=== PATIENT | female | born 1950 | race Caucasian/White ===

== ENCOUNTER 2018-05-18 09:34 | Day surgery (SDC) | payer MEDICARE ==
[2018-05-17 09:04] VITALS: BMI 34.9
[~2018-05-18 09:34] MED LIST: LACTATED RINGERS 1,000 ML IV SCH
[2018-05-18 11:01] VITALS: RESP 16; TEMP 97.2
[2018-05-18] MEDS ORDERED: LIDOCAINE 1% 20 ML VIAL (10MG/ML) FOR IV START INTRADERMA ONE (11:18)
[2018-05-18] MEDS ORDERED: PROPOFOL 10 MG/ML 20 ML VIAL IV ONE (11:29)
[2018-05-18] MEDS ORDERED: LIDOCAINE 1% INJ 10MG/ML (20 ML MDV) ONE (11:29)
--- NOTE | 2018-05-18 11:51 | P.PCN ---
Date of Procedure: 05/18/18 Procedure(s) Performed: Brief history: Patient is a pleasant 67-year-old white female, scheduled for an elective upper endoscopy as well as colonoscopy as a part of evaluation of long-standing history of GERD/screening for colorectal neoplasia Procedure performed: Esophagogastroduodenoscopy with biopsy Colonoscopy Preoperative diagnosis: GERD Screening for colon cancer Anesthesia: MAC Procedure: After informed consent was obtained from the patient was brought into the endoscopy unit and IV sedation was administered by anesthesia under continuous monitoring. Initially upper endoscopy was done. The Olympus GF 160 video endoscope was inserted inserted into the mouth and esophagus intubated without any difficulty and was gradually advanced into the stomach and duodenum and carefully examined. The bulb and second part of the duodenum appeared normal. The scope was then withdrawn into the stomach adequately insufflated with air and upon careful examination the antrum had mild gastritis and biopsies were done from this area. The body, cardia and fundus appeared normal. The scope was then withdrawn into the esophagus. The GE junction was located at 40 cm to the incisors. It appeared regular with no erythema erosions or ulcerations. Rest of the esophagus appeared normal. Patient tolerated the procedure well. At this time the patient continued to remain sedation. Initial digital rectal examination was normal. Olympus CF 160 video colonoscope was then inserted into the rectum and gradually advanced to the cecum without any difficulty. Careful examination was performed as the scope was gradually being withdrawn. The prep was excellent. The cecum, ascending colon, transverse colon, descending colon, sigmoid colon and rectum appeared normal. Retroflexion was performed in the rectum and no lesions were noted. Patient tolerated the procedure well. Impression: 1. Upper endoscopy revealed mild antral gastritis but no evidence of esophagitis or peptic ulcer disease. No evidence of Mosquera's esophagus 2. Colonoscopy was essentially within normal limits with no evidence of colorectal neoplasia Recommendations: Findings of this examination were discussed with the patient as well as her family. She will follow with the biopsy results. She was advised to have a repeat screening colonoscopy in 10 years.
[2018-05-18 12:18] VITALS: BP 137/87
[2018-05-18 12:37] VITALS: PULSE 87
== END 2018-05-18 12:49 | disposition home or self-care (01) ==
LOC: ORWHC2ENDO 09:34
PROVIDERS: ATTEND Internal Medicine Gastroenterology
DX: Z12.11 Encounter for screening for malignant neoplasm of colon (principal); K29.50 Unspecified chronic gastritis without bleeding; K21.9 Gastro-esophageal reflux disease without esophagitis; I10 Essential (primary) hypertension; E78.5 Hyperlipidemia, unspecified; J44.9 Chronic obstructive pulmonary disease, unspecified; Z86.73 Personal history of transient ischemic attack (TIA), and cerebral infarction without residual deficits; G35 Multiple sclerosis; Z79.02 Long term (current) use of antithrombotics/antiplatelets; Z79.899 Other long term (current) drug therapy; Z79.51 Long term (current) use of inhaled steroids
CPT/HCPCS: 88305; 43239; J2001; J2704; G0121

== ENCOUNTER 2023-04-06 06:49 | Inpatient (IN) | payer MEDICARE ==
--- NOTE | 2023-04-05 08:39 | P.HPOR ---
History of Present Illness H&P Date: 04/05/23 Chief Complaint: Left knee pain The patient is a 72-year-old female who presents with progressive left knee pain for the past several years worsening recently. She's having pain with any weightbearing activities. She does stiffness in addition to difficulty with stairs. She's tried injections along with medications. She also uses a walker. Review of Systems As per HPI Past Medical History Past Medical History: Cancer, CVA/TIA, GERD/Reflux, Hypertension, Neurologic Disorder, Osteoarthritis (OA) Additional Past Medical History / Comment(s): HX TIA (2005)-no residual effects, MULTIPLE SCLEROSIS WITH LEFT LEG WEAKNESS, NUMBNESS AND TINGLING IN HANDS & STIFFNESS (RIGHT HAND WORSE), TIRES EASILY. , HX FALLS., OCCASIONAL SOB., HERNIATED DISC, SCIATICA., TINNITIS., HX OF BREAST CANCER WITH SURGERY AND CHEMO (1997/1998)., KIDNEY STONES, overactive bladder, CYST LEFT KIDNEY, FREQUENT UTI'S-nothing recent. lower leg edema, left leg worse than right History of Any Multi-Drug Resistant Organisms: None Reported Past Surgical History: Back Surgery, Breast Surgery, Cholecystectomy, Hysterectomy, Orthopedic Surgery Additional Past Surgical History / Comment(s): BX LEFT BREAST, RIGHT MASTECTOMY WITH RECONSTRUCTION, ARTHROSCOPY KNEE., TRIGGER FINGER, BENIGN CYST THROAT REMOVED., BACK PAIN PROCEDURES., THYROID BX, TRANS INCISIONLESS FUNDIPLICATION (2010)-PATIENT STATES BAND AROUND ESOPHAGUS. back surg. 2021 Past Anesthesia/Blood Transfusion Reactions: Postoperative Nausea & Vomiting (PONV) Additional Past Anesthesia/Blood Transfusion Reaction / Comment(s): PONV w/gallbladder surg., no hx. of transfusion reaction Smoking Status: Never smoker - Past Family History Father Family Medical History: Cancer Additional Family Medical History / Comment(s): PANCREATIC CANCER Medications and Allergies Home Medications Medication Instructions Recorded Confirmed Type Cholecalciferol [Vitamin D3 (25 2,000 unit PO DAILY 05/17/18 03/30/23 History Mcg = 1000 Iu)] Fenofibrate 160 mg PO DAILY 05/17/18 03/30/23 History Fingolimod HCl [Gilenya] 0.5 mg PO DAILY 05/17/18 03/30/23 History Gabapentin [Neurontin] 300 mg PO BID 05/17/18 03/30/23 History Losartan [Cozaar] 50 mg PO DAILY 05/17/18 03/30/23 History Mirabegron [Myrbetriq] 25 mg PO DAILY 05/17/18 03/30/23 History Vit C/E/Zn/Coppr/Lutein/Zeaxan 1 each PO BID 05/17/18 03/31/23 History [Preservision Areds 2 Softgel] amLODIPine [Norvasc] 5 mg PO DAILY 05/17/18 03/30/23 History hydroCHLOROthiazide [Hydrodiuril] 12.5 mg PO DAILY 05/17/18 03/30/23 History Albuterol Inhaler [Ventolin Hfa 1 - 2 puff INHALATION Q6H PRN 03/30/23 03/30/23 History Inhaler] Ibandronate Sodium [Boniva] 150 mg PO Q30D 03/30/23 03/30/23 History Meclizine [Antivert] 12.5 mg PO DIRECTED PRN 03/30/23 03/30/23 History Meloxicam [Mobic] 15 mg PO DAILY 03/30/23 03/31/23 History Pantoprazole Sodium [Protonix] 20 mg PO DAILY 03/30/23 03/30/23 History Aspirin 81 mg PO DAILY 03/31/23 03/31/23 History Cranberry Fruit Extract [Cranberry] 500 mg PO BID 03/31/23 03/31/23 History Multivitamins, Thera [Multivitamin 1 tab PO DAILY 03/31/23 03/31/23 History (formulary)] Allergies Allergy/AdvReac Type Severity Reaction Status Date / Time oxybutynin Allergy Unknown Verified 03/31/23 08:43 solifenacin [From Vesicare] Allergy Unknown Verified 03/31/23 08:43 sulfamethoxazole Allergy Unknown Verified 03/31/23 08:43 [From Bactrim] trimethoprim [From Bactrim] Allergy Unknown Verified 03/31/23 08:43 Physical Examination - Knee left Appearance: effusion Effusion grade: grade 1 Valgus alignment in stance: 5 degrees Tenderness with palpation: anterior, lateral Pain: throughout ROM Gait: uses walker ROM: extension: -10 degrees ROM: flexion: 100 degrees Crepitus with motion: Yes Strength: extension: 5/5 Strength: flexion: 5/5 Meniscal tests: lateral meniscal tests: positive, lateral joint line pain: positive Results The patient is a well-developed well-nourished female proximally 5 foot 6, 200 pounds of endomorphic habitus. HEENT exam is nonfocal, neck supple. She has painless passive motion of her left hip. Straight leg raise is negative. She's tender but the lateral joint line of the left knee. Her distal neurovascular appears intact in the left lower extremity. - Diagnostic results Knee x-ray: image reviewed (3 views of the left knee obtaining office show severe lateral compartment osteoarthrosis with [id number] changes and subchondral sclerosis.) Assessment and Plan Assessment: Left knee severe lateral compartment osteoarthrosis History of multiple sclerosis Plan: I talked with the patient regarding her condition along with treatment options. At this point she is quite symptomatic and limited because of pain related to her left knee osteoarthritis despite conservative measures. After thorough discussion she opted to proceed with surgery. We'll plan to proceed with left total knee arthroplasty. Risks and benefits were discussed at length in layman's terms. We will institute DVT prophylaxis postoperatively.
[~2023-04-06 06:49] MED LIST changes: +ACETAMINOPHEN TAB 500 MG TAB PO PRN; -LACTATED RINGERS 1,000 ML IV SCH; +MELOXICAM 7.5 MG TAB PO PRN; +TRANEXAMIC 1,000 MG/100ML-NACL 1,000 MG in SALINE 1 100ML.BAG IVPB PRN; +VANCOMYCIN 1,500 MG in SODIUM CHLORIDE 0.9% 500 ML 500 ML IVPB PRN
[2023-04-06] MEDS ORDERED: HYDROmorphone 0.5 MG/0.5 ML SYRINGE IVP PRN ×3 (07:12→10:37)
[2023-04-06] MEDS ORDERED: DEXAMETHASONE SOD PHOSPHATE 4 MG/ML 1 ML VIAL IV ONE (07:12)
[2023-04-06] MEDS ORDERED: ONDANSETRON 4 MG/2 ML VIAL IVP ONE (07:12)
[2023-04-06] MEDS ORDERED: MIDAZOLAM 2 MG/2 ML VIAL IV PRN (07:12)
[2023-04-06] MEDS ORDERED: LIDOCAINE 1% (10MG/ML) FOR IV START INTRADERMA PRN (07:12)
[2023-04-06] MEDS: LACTATED RINGERS 1,000 ML IV SCH (07:53)
[2023-04-06] MEDS ORDERED: MIDAZOLAM 2 MG/2 ML VIAL IVP ONE (08:29)
[2023-04-06] MEDS ORDERED: LIDOCAINE 2% INJ 20 MG/ML (2 ML VIAL) ONE (08:51)
[2023-04-06] MEDS ORDERED: fentaNYL (PF) 50 MCG/ML 2 ML AMP ONE (08:51)
[2023-04-06] MEDS ORDERED: DEXAMETHASONE SOD PHOSPHATE 4 MG/ML 1 ML VIAL ONE (08:51)
[2023-04-06] MEDS ORDERED: TRANEXAMIC 1,000 MG/100ML-NACL PREMIX BAG ONE (08:51)
[2023-04-06] MEDS ORDERED: ROPIVACAINE 5 MG/ML 30 ML VIAL ONE (08:51)
[2023-04-06] MEDS ORDERED: SUCCINYLCHOLINE CHLORIDE 200 MG/10 ML VIAL IV ONE (08:51)
[2023-04-06] MEDS ORDERED: PROPOFOL 10 MG/ML 20 ML VIAL IV ONE (08:51)
[2023-04-06] MEDS ORDERED: ePHEDrine 50 MG/ML 1 ML VIAL ONE (08:51)
[2023-04-06] MEDS ORDERED: ceFAZolin 1,000 MG in SODIUM CHLORIDE 0.9% 1,000 ML IRRIGATION ONE (09:26)
[2023-04-06] MEDS ORDERED: NALOXONE 0.4 MG/ML 1 ML VIAL IV PRN (10:37)
[2023-04-06] MEDS ORDERED: MAGNESIUM HYDROXIDE 2,400 MG/30 ML CUP PO PRN (10:37)
--- NOTE | 2023-04-06 10:51 | P.OP ---
Date of Procedure: 04/06/23 Preoperative Diagnosis: Left knee severe tricompartmental osteoarthrosis Postoperative Diagnosis: Same Procedure(s) Performed: Left total knee arthroplastycementedposterior stabilized Implants: Depuy Attune size 5 cemented femoral component, size 4 cemented tibial component, 12 mm articular surface, 35 mm cemented patellar component. This is a posterior stabilized implant. Anesthesia: [facility] Surgeon: K[employer] Machine Operator #1: Ezequiel Valencia Estimated Blood Loss (ml): 50 Pathology: other (Bone fragments) Condition: stable Disposition: PACU Indications for Procedure: The patient's a 72-year-old female who presents with regressive left knee pain secondary to osteoarthrosis despite conservative measures. A discussion of the risks and benefits of operative intervention versus continued conservative measures was made with patient. She opted to proceed with surgery. Operative risks to include infection, neurovascular injury, development of blood clots, fracture, possible component loosening/failure and need for subsequent procedures was discussed. Informed consent was obtained. Operative Findings: As below Description of Procedure: The patient was brought to the operating room, and after induction of spinal anesthesia the left lower extremity was prepped and draped in a normal fashion. The tourniquet was inflated to 270 mm marker. A longitudinal incision extending 3 finger breaths above the superior pole of patella extending to the medial aspect the tibial tubercle was then made. The skin and subcutaneous tissues were divided sharply. Electrocautery was used for hemostasis. A medial parapatellar arthrotomy was performed. The medial soft tissues to include the superficial and deep portions of the medial collateral ligament were elevated subperiosteally. The patella was everted. A portion of the retropatellar fat pad was excised sharply. The anterior cruciate ligament was sacrificed. Blunt retractors were placed. A starting hole was made in the distal femur 1 cm anterior to the posterior cruciate ligament origin. An intramedullary femoral guide was then inserted planning on 5 valgus distal cut with 9 mm distal resec tion. The cutting block was pinned in place. The distal cut was then made. The posterior referencing sizing guide was utilized. I felt size 5 was most appropriate. 3 of external rotation was built into the system and verified off the trans-epicondylar axis and the posterior condyles. The cutting block was pinned in place. The anterior, posterior, and chamfer cuts then made. Bone fragments were removed. The intercondylar guide was placed and the notch cut was made with a sagittal saw. The bone block was removed in one fragment. The trial component was then placed. There is good anterior to posterior and medial to lateral fit. The distal peg holes were drilled. The trial component was removed. Attention was then paid towards preparing the proximal tibia. An extra medullary guide was utilized in line with the tibial shaft and second metatarsal distally. I planned on 8 mm resection from the medial compartment. The cutting block was pinned in place. The proximal tibial cut was then made. The bone was removed in one fragment. The remnants of the medial and lateral menisci were excised at the capsular junction with electrocautery. The tibia sized most appropriately at size 4. The trial femoral and tibial components were placed along with a 12 mm articular surface. I was able to obtain full flexion and extension with internal and external rotation. After several flexion and extension cycles, the tibial rotation was marked with electrocautery line with the medial one third of the tibial tubercle. Attention was then paid towards preparing the patella. A patella reamer was utilized taking stem to 14 mm of bone stock. A good flush cut was made. The patella sized most appropriately 35 mm. The peg holes were drilled. The trial components placed. I had good patellofemoral tracking with no hands technique. The trial components were then removed. The tibia was prepared in the appropriate rotation with appropriate drill and keel punch. The posterior osteophytes were removed with a curved osteotome. The flexion and extension gaps were checked and felt to be symmetric at 12 mm. A trial components were then removed. The bony surfaces were prepared with pulsatile lavage and dried. The tibial component was then cemented place was fully seated. Excess cement was removed. The femoral component cemented place and was fully seated. Excess cement was removed. The trial 12 mm articular surface was placed and the knee was put in full extension. The patella component was cemented place. After the cement had sufficiently hardened, the knee was again taken through a range of motion. Again I was able to obtain full flexion and extension with varus and valgus stress. The trial 12 mm articular surface was removed and the final one inserted. This was fully seated. Care was taken to avoid any soft tissue interposition. Pulsatile lavage was again utilized. The medial parapatellar arthrotomy was closed with #2 Ethibond suture. The tourniquet was deflated with approximately 60 minutes total tourniquet time. Final hemostasis was obtained with the cautery. There was minimal bleeding therefore a deep drain was not placed. The subcutaneous tissues were reapproximated with interrupted 2-0 Vicryl sutures. The skin was reapproximated with 3-0 subcuticular strata fix suture. Skin tape and adhesive was applied. A sterile dressing was applied. The patient was awoken from sedation and transferred to recovery room in good condition. Blood loss was estimated at 50 mL. No complications were incurred. Sponge and needle counts were correct at the end of the case. Ezequiel FOY assisted during the major components of this case to include exposure, bone resection, implantation, and closure.
[2023-04-06] MEDS: HYDROmorphone 0.5 MG/0.5 ML SYRINGE IVP ONE ×2 (11:03→12:03)
[2023-04-06] MEDS ORDERED: HYDROmorphone 0.5 MG/0.5 ML SYRINGE IVP ONE ×2 (11:11→11:28)
--- NOTE | 2023-04-06 11:12 | XR ---
EXAMINATION TYPE: XR knee limited LT DATE OF EXAM: 04/06/2023 COMPARISON: NONE TECHNIQUE: Two views submitted HISTORY: Post op FINDINGS: There is a prosthetic knee in near anatomic alignment. There is soft tissue edema and soft tissue e mphysema. IMPRESSION: 1. Postoperative change. Appears in near-anatomic alignment
[2023-04-06] MEDS ORDERED: ROPIVACAINE 1,100 MG, SODIUM CHLORIDE 0.9% 500 ML 330 ML, EMPTY PAIN BALL 1 EACH MISCELLANE PRN ×2 (11:18)
--- NOTE | 2023-04-06 15:23 | P.ANPRN ---
Procedure Note - Anesthesia - Nerve Block Performed Left Adductor Canal Infusion Time Out Performed: Yes Date of Procedure: 04/06/23 Procedure Start Time: : Procedure Stop Time: :37 Location of Patient: PreOp Indication: Acute Post-Operative Pain, Requested by Surgeon Sedation Type: Sedate with meaningful contact maintained Preparation: Sterile Prep, Sterile Dressing Position: Supine Catheter: Indwelling Needle Types: Pajunk Needle Gauge: 21 Ultrasound used to visualize needle placement: Yes Ultrasound used to observe medication spread: Yes Blood Aspirated: No Pain Paresthesia on Injection Noted: No Resistance on Injection: Normal Image Stored and Saved: Yes Events: Uneventful and Well Tolerated (ropi .5% 20cc plus dexamethasone 4mg)
--- NOTE | 2023-04-06 15:25 | P.ANPRN ---
Procedure Note - Anesthesia - Nerve Block Performed Left iPack Single Time Out Performed: Yes Date of Procedure: 04/06/23 Procedure Start Time: :38 Procedure Stop Time: :41 Location of Patient: PreOp Indication: Acute Post-Operative Pain, Requested by Surgeon Sedation Type: Sedate with meaningful contact maintained Preparation: Sterile Prep Position: Supine Needle Types: Pajunk Needle Gauge: 21 Ultrasound used to visualize needle placement: Yes Ultrasound used to observe medication spread: Yes Blood Aspirated: No Pain Paresthesia on Injection Noted: No Resistance on Injection: Normal Image Stored and Saved: Yes Events: Uneventful and Well Tolerated (ropi .5% 25cc plus dexmethasone 4mg)
[2023-04-06] MEDS ORDERED: VANCOMYCIN 1,500 MG in SODIUM CHLORIDE 0.9% 500 ML 500 ML IVPB ONE (21:00)
[2023-04-06] MEDS: SENNOSIDES-DOCUSATE SODIUM 1 EACH TAB PO SCH (21:11)
[2023-04-06] MEDS: GABAPENTIN 300 MG CAP PO SCH (21:11)
[2023-04-06] MEDS: HYDROcodone/APAP 7.5-325MG 1 EACH TAB PO PRN (21:12)
--- NOTE | 2023-04-07 07:04 | P.PN ---
Progress Note - Text Progress Note Date: 04/07/23 Postoperative day # 1 status post total knee arthroplasty, and adductor canal catheter placed for postoperative analgesia, currently at ropivacaine 0.2% 8 mL per hour and continuous infusion, visual analogue scale is 4/10, patient using oral pain medication for breakthrough pain. Assessment and plan= Acute postoperative pain, adductor canal catheter for pain control, pain is well controlled we'll continue the same management.
[2023-04-07] MEDS: LACTATED RINGERS 1,000 ML IV SCH (07:16)
[2023-04-07] MEDS: RIVAROXABAN 10 MG TAB PO SCH (08:49)
[2023-04-07] MEDS: HYDROcodone/APAP 7.5-325MG 1 EACH TAB PO PRN (08:49)
[2023-04-07] MEDS: GABAPENTIN 300 MG CAP PO SCH ×2 (08:49→20:59)
--- NOTE | 2023-04-07 11:44 | P.PN ---
Subjective Progress Note Date: 04/07/23 Principal diagnosis: Left knee osteoarthritis Patient was seen at bedside this morning lying semirecumbent position dressing present over left knee. Patient says she has been getting up every couple hours to use the bathroom. Patient says she has urinated since surgery several times. Patient says she has not had following, however, patient says she has been passing gas. Patient says she does live at home with several subsequent to get to the house with her 81-year-old boyfriend. Patient is hoping to go to swing bed upon discharge from hospital. Patient states most the pain is located the front of the knee and states she also has spasms in the thigh currently. Zenia nt says she is looking forward to working with physical therapy later today. She denies chest pain, fever, shortness breath, nausea, vomiting, change in vision, loss of bowel/bladder control. Objective - Vital Signs Vital signs: Vital Signs Temp 97.9 F 04/07/23 08:00 Pulse 70 04/07/23 08:00 Resp 17 04/07/23 08:00 BP 154/77 04/07/23 08:00 Pulse Ox 96 04/07/23 08:00 FiO2 Intake & Output 04/06/23 04/07/23 04/07/23 18:59 06:59 18:59 Intake Total 1701 Output Total 50 Balance 1651 Weight 92.4 kg Intake: IV 1201 Intake, IV Titration 500 Amount Vancomycin 1,500 mg In 500 Sodium Chloride 0.9% 500 ml 500 ml @ 166.667 mls/ hr IVPB ONCE ONE Rx#: [id number] Output: Estimated Blood Loss 50 Other: # Voids 1 - Exam Left knee: Incision is clean, dry, and intact. The exofin fusion tape is in good condition. There is minimal soft tissue swelling and ecchymosis surrounding the medial and lateral aspects of the incision. Calf is soft, no tenderness with palpation. Plantar flexion, dorsiflexion, EHL, FHL are intact. Sensory exam to light touch throughout the extremity is intact, dorsal pedis pulses 2+. Assessment and Plan Assessment: 1. Left knee osteoarthritis - Postoperative day #1 status post left total knee arthroplasty Plan: 1. Left knee osteoarthritis - left total knee arthroplasty performed yesterday, 04/06/2023. Patient stable at bedside this morning. Pending PT/OT evaluation. Patient would like to go to bed upon discharge. Plan for discharge to rehab within the next few days. We'll continue to follow patient during her stay in hospital. 2. Appreciate medical management 3. Pain management - [place] 4. GI prophylaxis - senna 5. DVT prophylaxis - Xarelto 6. PT/OT - weightbearing as tolerated walker 7. Encourage incentive spirometer use 8. Discharge planning - Plan for discharge to rehab within the next few days Time with Patient: Less than 30
[2023-04-07 12:47] LABS: Basophils # (A) 0.01 X 10*3/uL (0.00-0.10); Basophils % (A) 0.1 %; Eosinophils # (A) 0 X 10*3/uL (0.04-0.35); Eosinophils % (A) 0 %; HCT 35.7 % (37.2-46.3); HGB 11.6 d/dL (12.0-15.0); Lymphocytes # (A) 0.58 X 10*3/uL (0.90-5.00); Lymphocytes % (A) 6.9 %; MCH 30.5 pg (27.0-32.0); MCHC 32.5 d/dL (32.0-37.0); MCV 93.9 FL (80.0-97.0); Mean Platelet Volume 10.5 FL (9.5-12.2); Monocytes # (A) 1.22 X 10*3/uL (0.20-1.00); Monocytes % (A) 14.5 %; NRBC Per 100 WBC 0 X 10*3/uL (0.00-0.01); Neutrophils # (A) 6.54 X 10*3/uL (1.80-7.70); Neutrophils % (A) 77.9 %; Platelet Count 279 X 10*3/uL (140-440); RDW 13.2 % (11.5-14.5)
[2023-04-07] MEDS ORDERED: ALBUTEROL NEBULIZED 2.5 MG/3 ML INHALATION PRN (12:48)
--- NOTE | 2023-04-07 12:53 | P.CONS ---
History of Present Illness - Reason for Consult Consult date: 04/07/23 Medical management - History of Present Illness History of present illness; patient is a 72-year-old lady with past medical history significant for hypertension, hyperlipidemia, GERD who presented to the hospital for elective left total knee arthroplasty. Patient has been following up outpatient with orthopedics for couple of years and her left knee pain has been worsening. Orthopedic discussed with her regarding her treatment options, since she is symptomatic day decided to proceed with surgery. Patient had surgery done on 04/06. Postoperatively the medicine team were consulted for medical management REVIEW OF SYSTEMS: CONSTITUTIONAL: No fever, no malaise, no fatigue. HEENT: No recent visual problems or hearing problems. Denied any sore throat. CARDIOVASCULAR: No chest pain, orthopnea, PND, no palpitations, no syncope. PULMONARY: No shortness of breath, no cough, no hemoptysis. GASTROINTESTINAL: No diarrhea, no nausea, no vomiting, no abdominal pain. NEUROLOGICAL: No headaches, no weakness, no numbness. HEMATOLOGICAL: Denies any bleeding or petechiae. GENITOURINARY: Denies any burning micturition, frequency, or urgency. MUSCULOSKELETAL/RHEUMATOLOGICAL: Denies any joint pain, swelling, or any muscle pain. ENDOCRINE: Denies any polyuria or polydipsia. The rest of the 14-point review of systems is negative. PHYSICAL EXAMINATION: GENERAL: The patient is alert and oriented x3, not in any acute distress. Well developed, well nourished. HEENT: Pupils are round and equally reacting to light. EOMI. No scleral icterus. No conjunctival pallor. Normocephalic, atraumatic. No pharyngeal erythema. No thyromegaly. CARDIOVASCULAR: S1 and S2 present. No murmurs, rubs, or gallops. PULMONARY: Chest is clear to auscultation, no wheezing or crackles. ABDOMEN: Soft, nontender, nondistended, normoactive bowel sounds. No palpable organomegaly. MUSCULOSKELETAL: No joint swelling or deformity. EXTREMITIES: No cyanosis, clubbing, or pedal edema. NEUROLOGICAL: Gross neurological examination did not reveal any focal deficits. SKIN: No rashes. Assessment and plan Left knee severe lateral compartment osteoarthrosis status post left knee arthroplasty History of multiple sclerosis Hypertension Hyperlipidemia Monitor vital signs Monitor CBC Monitor CMP Continue pain management per orthopedics Continue DVT prophylaxis per orthopedics Resume Norvas, for now, resume rest of blood pressure medication as tolerated Resume fenofibrate Resume Neurontin PT and OT evaluation Labs and medication were reviewed.. Continue same treatment. Continue with symptomatic treatment. Resume home medication. Monitor labs and vitals. DVT and GI prophylaxis. Further recommendations as per clinical course of the patient Dictation was produced using [email or web address] dictation software. please excuse any grammatical, word or spelling errors. Past Medical History Past Medical History: Cancer, CVA/TIA, GERD/Reflux, Hypertension, Neurologic Disorder, Osteoarthritis (OA) Additional Past Medical History / Comment(s): HX TIA (2005)-no residual effects, MULTIPLE SCLEROSIS WITH LEFT LEG WEAKNESS, NUMBNESS AND TINGLING IN HANDS & STIFFNESS (RIGHT HAND WORSE), TIRES EASILY. , HX FALLS., OCCASIONAL SOB., HERNIATED DISC, SCIATICA., TINNITIS., HX OF BREAST CANCER WITH SURGERY AND CHEMO ()., KIDNEY STONES, overactive bladder, CYST LEFT KIDNEY, FREQUENT UTI'S-nothing recent. lower leg edema, left leg worse than right History of Any Multi-Drug Resistant Organisms: MRSA Year Discovered:: 03/02/2023 MDRO Source:: pre-op nasal swab Past Surgical History: Back Surgery, Breast Surgery, Cholecystectomy, Hysterectomy, Orthopedic Surgery Additional Past Surgical History / Comment(s): BX LEFT BREAST, RIGHT MASTECTOMY WITH RECONSTRUCTION, ARTHROSCOPY KNEE., TRIGGER FINGER, BENIGN CYST THROAT REMOVED., BACK PAIN PROCEDURES., THYROID BX, TRANS INCISIONLESS FUNDIPLICATION (2010)-PATIENT STATES BAND AROUND ESOPHAGUS. back surg. 2021. Left TKR 04/06/23 Past Anesthesia/Blood Transfusion Reactions: Postoperative Nausea & Vomiting (PONV) Additional Past Anesthesia/Blood Transfusion Reaction / Comm: PONV w/gallbladder surg., no hx. of transfusion reaction Past Psychological History: Anxiety, Depression Smoking Status: Never smoker Past Alcohol Use History: None Reported Past Drug Use History: None Reported - Past Family History Father Family Medical History: Cancer Additional Family Medical History / Comment(s): PANCREATIC CANCER Medications and Allergies Home Medications Medication Instructions Recorded Confirmed Type Cholecalciferol [Vitamin D3 (25 2,000 unit PO DAILY 05/17/18 04/06/23 History Mcg = 1000 Iu)] Fenofibrate 160 mg PO DAILY 05/17/18 04/06/23 History Fingolimod HCl [Gilenya] 0.5 mg PO DAILY 05/17/18 04/06/23 History Gabapentin [Neurontin] 300 mg PO BID 05/17/18 04/06/23 History Losartan [Cozaar] 50 mg PO DAILY 05/17/18 04/06/23 History Mirabegron [Myrbetriq] 25 mg PO DAILY 05/17/18 04/06/23 History Vit C/E/Zn/Coppr/Lutein/Zeaxan 1 each PO BID 05/17/18 03/31/23 History [Preservision Areds 2 Softgel] amLODIPine [Norvasc] 5 mg PO DAILY 05/17/18 04/06/23 History hydroCHLOROthiazide [Hydrodiuril] 12.5 mg PO DAILY 05/17/18 04/06/23 History Albuterol Inhaler [Ventolin Hfa 1 - 2 puff INHALATION Q6H PRN 03/30/23 04/06/23 History Inhaler] Ibandronate Sodium [Boniva] 150 mg PO Q30D 03/30/23 04/06/23 History Meclizine [Antivert] 12.5 mg PO DIRECTED PRN 03/30/23 04/06/23 History Meloxicam [Mobic] 15 mg PO DAILY 03/30/23 03/31/23 History Pantoprazole Sodium [Protonix] 20 mg PO DAILY 03/30/23 04/06/23 History Aspirin 81 mg PO DAILY 03/31/23 03/31/23 History Cranberry Fruit Extract [Cranberry] 500 mg PO BID 03/31/23 03/31/23 History Multivitamins, Thera [Multivitamin 1 tab PO DAILY 03/31/23 03/31/23 History (formulary)] Allergies Allergy/AdvReac Type Severity Reaction Status Date / Time oxybutynin Allergy Unknown Verified 03/31/23 08:43 solifenacin [From Vesicare] Allergy Unknown Verified 03/31/23 08:43 sulfamethoxazole Allergy Unknown Verified 03/31/23 08:43 [From Bactrim] trimethoprim [From Bactrim] Allergy Unknown Verified 03/31/23 08:43 Physical Exam Vitals: Vital Signs Temp Pulse Pulse Resp BP Pulse Ox 04/07/23 08:00 97.9 F 70 17 154/77 96 04/07/23 00:55 98.0 F 98 18 118/70 97 04/06/23 19:05 98.2 F 91 18 113/75 90 L 04/06/23 15:18 97.5 F L 95 15 123/78 99 04/06/23 15:15 97 04/06/23 15:03 97.5 F L 92 16 121/81 99 04/06/23 13:45 93 20 110/57 96 04/06/23 13:15 91 20 104/59 93 L Intake and Output 04/06/23 04/07/23 04/07/23 22:59 06:59 14:59 Intake Total 500 Balance 500 Intake: Intake, IV Titration 500 Amount Vancomycin 1,500 mg In 500 Sodium Chloride 0.9% 500 ml 500 ml @ 166.667 mls/ hr IVPB ONCE ONE Rx#: [id number] Other: # Voids 1 Weight 92.4 kg
[2023-04-07] MEDS: HYDROcodone/APAP 5-325MG 1 EACH TAB PO PRN (20:59)
[2023-04-07] MEDS ORDERED: GABAPENTIN 300 MG CAP PO SCH (21:00)
[2023-04-07] MEDS: SENNOSIDES-DOCUSATE SODIUM 1 EACH TAB PO SCH (21:00)
[2023-04-08] MEDS: HYDROcodone/APAP 5-325MG 1 EACH TAB PO PRN (02:24)
[2023-04-08] MEDS: MULTIVITAMINS, THERA 1 EACH TAB PO SCH (08:52)
[2023-04-08] MEDS: GABAPENTIN 300 MG CAP PO SCH ×2 (08:52→20:10)
[2023-04-08] MEDS: HYDROcodone/APAP 7.5-325MG 1 EACH TAB PO PRN ×2 (08:52→16:56)
[2023-04-08] MEDS: RIVAROXABAN 10 MG TAB PO SCH (08:53)
[2023-04-08] MEDS: FENOFIBRATE 160 MG TAB PO SCH (08:53)
[2023-04-08] MEDS: amLODIPine 5 MG TAB PO SCH (08:53)
[2023-04-08] MEDS: NON FORMULARY DRUG (Mirabegron [Myrbetriq] 25 MG Tab.Er.24h) PO SCH (10:03)
[2023-04-08] MEDS: PANTOPRAZOLE SODIUM 40 MG GRANULE PKT PO SCH (10:04)
[2023-04-08] MEDS: LOSARTAN 50 MG TAB PO SCH (11:10)
[2023-04-08] MEDS: hydroCHLOROthiazide 12.5 MG CAP PO SCH (11:11)
--- NOTE | 2023-04-08 11:25 | P.PN ---
Subjective Progress Note Date: 04/08/23 Principal diagnosis: Status post left total knee arthroplasty patient was examined today at bedside, she is resting in her hospital bed. I was able to discuss the patient's progress with physical therapy, she states that she is doing better today. She still is requiring a lot of assistance when getting out of bed and also using the restroom. Patient feels that the pain is a little bit easier today. They have turned the pain catheter up a little bit. She continues to utilize oral medication as needed. She denies headaches, lightheadedness, chest pain or shortness of breath. Objective - Vital Signs Vital signs: Vital Signs Temp 97.0 F L 04/08/23 08:00 Pulse 95 04/08/23 08:00 Resp 17 04/08/23 08:00 BP 159/80 04/08/23 08:00 Pulse Ox 94 L 04/08/23 08:00 FiO2 Intake & Output 04/07/23 04/08/23 04/08/23 18:59 06:59 18:59 Output Total 300 Balance -300 Output: Urine 300 Other: # Voids 4 - Exam Left lower extremity: Incision is clean, dry, and intact. The exofin fusion tape is in good condition. There is minimal soft tissue swelling and ecchymosis surrounding the medial and lateral aspects of the incision. Calf is soft, no tenderness with palpation. Plantar flexion, dorsiflexion, EHL, FHL are intact. Sensory exam to light touch throughout the extremity is intact, dorsal pedis pulses 2+. - Labs CBC & Chem 7: 04/07/23 06:33 Labs: Abnormal Lab Results - Last 24 Hours (Table) 04/07/23 Range/Units 06:33 RBC 3.80 L (4.10-5.20) X 10*6/uL Hgb 11.6 L (12.0-15.0) d/dL Hct 35.7 L (37.2-46.3) % Lymphocytes # 0.58 L (0.90-5.00) X 10*3/uL Monocytes # 1.22 H (0.20-1.00) X 10*3/uL Eosinophils # 0 L (0.04-0.35) X 10*3/uL Assessment and Plan Assessment: Postoperative day #2 status post left total knee arthroplasty Plan: Pain control, continue current medications DVT prophylaxis, continue Xarelto daily Wound care instructions, continue to monitor surgical dressing, keep covered and dry while showering, discussed icing and elevating techniques Continue PT/OT, weight-bear as tolerated Encourage incentive spirometer Medical recommendations Discharge planning: Awaiting authorization for subacute rehab placement, we'll continue to follow with case management regarding this Time with Patient: Less than 30
[2023-04-08] MEDS: FINGOLIMOD HCL 0.5 MG PO SCH (11:46)
[2023-04-08 13:39] LABS: ALT 20 U/L (8-44); AST 25 U/L (13-35); Albumin 3.8 d/dL (3.8-4.9); Albumin/Globulin Ratio 1.73 Ratio (1.60-3.17); Alkaline Phosphatase 39 U/L (41-126); BUN/Creat Ratio 26.12 Ratio (12.00-20.00); Blood Urea Nitrogen 20.9 mg/dL (9.0-27.0); Calcium 9.1 mg/dL (8.7-10.3); Carbon Dioxide 26.2 mmol/L (21.6-31.8); Chloride 104 mmol/L (96-109); Globulin 2.2 d/dL (1.6-3.3); Glucose 88 mg/dL (70-110); Potassium 4.2 mmol/L (3.5-5.5); Sodium 139 mmol/L (135-145); Total Bilirubin 0.6 mg/dL (0.3-1.2)
--- NOTE | 2023-04-08 13:41 | P.PN ---
Subjective Progress Note Date: 04/08/23 patient is a 72-year-old lady with past medical history significant for hypertension, hyperlipidemia, GERD who presented to the hospital for elective left total knee arthroplasty. Patient has been following up outpatient with orthopedics for couple of years and her left knee pain has been worsening. Orthopedic discussed with her regarding her treatment options, since she is symptomatic day decided to proceed with surgery. Patient had surgery done on 04/06. Postoperatively the medicine team were consulted for medical management 04/08. Patient seen and examined. Blood pressure is elevated, will reintroduce patient's losartan and hydrochlorothiazide. Still complaining of left knee pain, states pain is poorly controlled REVIEW OF SYSTEMS: CONSTITUTIONAL: No fever, no malaise,. CARDIOVASCULAR: No chest pain, no palpitations, no syncope. PULMONARY: No shortness of breath, no cough, GASTROINTESTINAL: No diarrhea, no nausea, no vomiting, no abdominal pain. NEUROLOGICAL: No headaches, no weakness, PHYSICAL EXAMINATION: GENERAL: The patient is alert and oriented x3, not in any acute distress. Well developed, well nourished. HEENT: Pupils are round and equally reacting to light. EOMI. No scleral icterus. No conjunctival pallor. Normocephalic, atraumatic. No pharyngeal erythema. No thyromegaly. CARDIOVASCULAR: S1 and S2 present. No murmurs, rubs, or gallops. PULMONARY: Chest is clear to auscultation, no wheezing or crackles. ABDOMEN: Soft, nontender, nondistended, normoactive bowel sounds. No palpable organomegaly. MUSCULOSKELETAL: Left knee surgical incision seen, no erythema EXTREMITIES: No cyanosis, clubbing, or pedal edema. NEUROLOGICAL: Gross neurological examination did not reveal any focal deficits. SKIN: No rashes. Assessment and plan Left knee severe lateral compartment osteoarthrosis status post left knee arthroplasty History of multiple sclerosis Hypertension Hyperlipidemia Monitor vital signs Monitor CBC Monitor CMP Continue pain management per orthopedics Continue DVT prophylaxis per orthopedics Continue Norvasc, resume HCTZ and losartan Continue fenofibrate Continue Neurontin PT and OT evaluation Labs and medication were reviewed.. Continue same treatment. Continue with symptomatic treatment. Resume home medication. Monitor labs and vitals. DVT and GI prophylaxis. Further recommendations as per clinical course of the patient Dictation was produced using [employer] software. please excuse any grammatical, word or spelling errors. Objective - Vital Signs Vital signs: Vital Signs Temp 97.0 F L 04/08/23 08:00 Pulse 95 04/08/23 08:00 Resp 17 04/08/23 08:00 BP 159/80 04/08/23 08:00 Pulse Ox 94 L 04/08/23 08:00 FiO2 Intake & Output 04/07/23 04/08/23 04/08/23 18:59 06:59 18:59 Output Total 300 Balance -300 Output: Urine 300 Other: # Voids 4 - Labs CBC & Chem 7: 04/07/23 06:33 04/08/23 06:26 Labs: Abnormal Lab Results - Last 24 Hours (Table) 04/07/23 Range/Units 06:33 RBC 3.80 L (4.10-5.20) X 10*6/uL Hgb 11.6 L (12.0-15.0) d/dL Hct 35.7 L (37.2-46.3) % Lymphocytes # 0.58 L (0.90-5.00) X 10*3/uL Monocytes # 1.22 H (0.20-1.00) X 10*3/uL Eosinophils # 0 L (0.04-0.35) X 10*3/uL
[2023-04-08 14:57] LABS: HCT 35.3 % (37.2-46.3); HGB 11.5 d/dL (12.0-15.0); MCH 31.3 pg (27.0-32.0); MCHC 32.6 d/dL (32.0-37.0); MCV 96.2 FL (80.0-97.0); Mean Platelet Volume 10.5 FL (9.5-12.2); NRBC Per 100 WBC 0 X 10*3/uL (0.00-0.01); Platelet Count 251 X 10*3/uL (140-440); RBC 3.67 X 10*6/uL (4.10-5.20); RDW 13.7 % (11.5-14.5); WBC 5.47 X 10*3/uL (4.50-10.00)
[2023-04-08] MEDS: SENNOSIDES-DOCUSATE SODIUM 1 EACH TAB PO SCH (20:10)
[2023-04-09] MEDS: PANTOPRAZOLE SODIUM 40 MG GRANULE PKT PO SCH (06:41)
[2023-04-09] MEDS: hydroCHLOROthiazide 12.5 MG CAP PO SCH (08:07)
[2023-04-09] MEDS: FENOFIBRATE 160 MG TAB PO SCH (08:07)
[2023-04-09] MEDS: amLODIPine 5 MG TAB PO SCH (08:07)
[2023-04-09] MEDS: LOSARTAN 50 MG TAB PO SCH (08:07)
[2023-04-09] MEDS: RIVAROXABAN 10 MG TAB PO SCH (08:07)
[2023-04-09] MEDS: GABAPENTIN 300 MG CAP PO SCH ×2 (08:07→21:12)
[2023-04-09] MEDS: MULTIVITAMINS, THERA 1 EACH TAB PO SCH (08:08)
[2023-04-09] MEDS: FINGOLIMOD HCL 0.5 MG PO SCH (08:11)
[2023-04-09] MEDS: NON FORMULARY DRUG (Mirabegron [Myrbetriq] 25 MG Tab.Er.24h) PO SCH (10:58)
--- NOTE | 2023-04-09 12:29 | P.PN ---
Subjective Progress Note Date: 04/09/23 Principal diagnosis: Left knee osteoarthritis Patient was seen at bedside this morning lying semirecumbent position sitting in chair. Patient says she is still having some knee pain, however, patient does note some improvement with physical therapy. Patient says she has urinated daily since surgery. Patient says she has not had bowel movement yet, however, patient says she has been passing gas. Patient is hoping to go to swing bed upon discharge and is hoping to go there today or tomorrow. Objective - Vital Signs Vital signs: Vital Signs Temp 97.3 F L 04/09/23 00:25 Pulse 89 04/09/23 00:25 Resp 16 04/09/23 00:25 BP 149/77 04/09/23 00:25 Pulse Ox 95 04/09/23 00:25 FiO2 Intake & Output 04/08/23 04/09/23 04/09/23 18:59 06:59 18:59 Other: # Voids 5 6 - Exam Left knee: Incision is clean, dry, and intact. The exofin fusion tape is in good condition. There is minimal soft tissue swelling and ecchymosis surrounding the medial and lateral aspects of the incision. Calf is soft, no tenderness with palpation. Plantar flexion, dorsiflexion, EHL, FHL are intact. Sensory exam to light touch throughout the extremity is intact, dorsal pedis pulses 2+. - Labs CBC & Chem 7: 04/08/23 06:26 04/08/23 06:26 Labs: Abnormal Lab Results - Last 24 Hours (Table) 04/08/23 04/08/23 Range/Units 06:26 06:26 RBC 3.67 L (4.10-5.20) X 10*6/uL Hgb 11.5 L (12.0-15.0) d/dL Hct 35.3 L (37.2-46.3) % BUN/Creatinine Ratio 26.12 H (12.00-20.00) Ratio Alkaline Phosphatase 39 L (41-126) U/L Total Protein 6.0 L (6.2-8.2) d/dL Assessment and Plan Assessment: 1. Left knee osteoarthritis - Postoperative day #3 status post left total knee arthroplasty Plan: 1. Left knee osteoarthritis - left total knee arthroplasty performed 04/06/2023. Patient stable at bedside this morning. Patient continues to work with PT/OT daily. Order was placed on 04/07/2023 for inpatient stay greater than 2 days. Due to PT/OT recommendations patient's status, we are recommending discharge to rehab. This is postoperative day #3 and patient is ready to go to rehab from an orthopedic standpoint. Patient would like to go to rehab upon discharge. Plan for discharge to rehab when swing bed can accommodate. We'll continue to follow patient during her stay in hospital. 2. Appreciate medical management 3. Pain management - [place] 4. GI prophylaxis - senna 5. DVT prophylaxis - Xarelto 6. PT/OT - weightbearing as tolerated walker 7. Encourage incentive spirometer use 8. Discharge planning - Plan for discharge to rehab today/tmrw if possible Time with Patient: Less than 30
--- NOTE | 2023-04-09 13:53 | P.PN ---
Subjective Progress Note Date: 04/09/23 patient is a 72-year-old lady with past medical history significant for hypertension, hyperlipidemia, GERD who presented to the hospital for elective left total knee arthroplasty. Patient has been following up outpatient with orthopedics for couple of years and her left knee pain has been worsening. Orthopedic discussed with her regarding her treatment options, since she is symptomatic day decided to proceed with surgery. Patient had surgery done on 04/06. Postoperatively the medicine team were consulted for medical management 04/08. Patient seen and examined. Blood pressure is elevated, will reintroduce patient's losartan and hydrochlorothiazide. Still complaining of left knee pain, states pain is poorly controlled 04/09. Patient seen and examined. Currently waiting on insurance authorization for rehab placement. States pain is better controlled. REVIEW OF SYSTEMS: CONSTITUTIONAL: No fever, no malaise,. CARDIOVASCULAR: No chest pain, no palpitations, no syncope. PULMONARY: No shortness of breath, no cough, GASTROINTESTINAL: No diarrhea, no nausea, no vomiting, no abdominal pain. NEUROLOGICAL: No headaches, no weakness, PHYSICAL EXAMINATION: GENERAL: The patient is alert and oriented x3, not in any acute distress. Well developed, well nourished. HEENT: Pupils are round and equally reacting to light. EOMI. No scleral icterus. No conjunctival pallor. Normocephalic, atraumatic. No pharyngeal erythema. No thyromegaly. CARDIOVASCULAR: S1 and S2 present. No murmurs, rubs, or gallops. PULMONARY: Chest is clear to auscultation, no wheezing or crackles. ABDOMEN: Soft, nontender, nondistended, normoactive bowel sounds. No palpable organomegaly. MUSCULOSKELETAL: Left knee surgical incision seen, no erythema EXTREMITIES: No cyanosis, clubbing, or pedal edema. NEUROLOGICAL: Gross neurological examination did not reveal any focal deficits. SKIN: No rashes. Assessment and plan Left knee severe lateral compartment osteoarthrosis status post left knee arthroplasty History of multiple sclerosis Hypertension Hyperlipidemia Monitor vital signs Monitor CBC Monitor CMP Continue pain management per orthopedics Continue DVT prophylaxis per orthopedics Continue Norvasc, HCTZ and losartan Continue fenofibrate Continue Neurontin PT and OT to rehab, waiting on placement Labs and medication were reviewed.. Continue same treatment. Continue with symptomatic treatment. Resume home medication. Monitor labs and vitals. DVT and GI prophylaxis. Further recommendations as per clinical course of the patient Dictation was produced using [employer] dictation software. please excuse any grammatical, word or spelling errors. Objective - Vital Signs Vital signs: Vital Signs Temp 97.3 F L 04/09/23 00:25 Pulse 89 04/09/23 00:25 Resp 16 04/09/23 00:25 BP 149/77 04/09/23 00:25 Pulse Ox 95 04/09/23 00:25 FiO2 Intake & Output 04/08/23 04/09/23 04/09/23 18:59 06:59 18:59 Other: # Voids 5 6 - Labs CBC & Chem 7: 04/08/23 06:26 04/08/23 06:26 Labs: Abnormal Lab Results - Last 24 Hours (Table) 04/08/23 04/08/23 Range/Units 06:26 06:26 RBC 3.67 L (4.10-5.20) X 10*6/uL Hgb 11.5 L (12.0-15.0) d/dL Hct 35.3 L (37.2-46.3) % BUN/Creatinine Ratio 26.12 H (12.00-20.00) Ratio Alkaline Phosphatase 39 L (41-126) U/L Total Protein 6.0 L (6.2-8.2) d/dL
[2023-04-09 14:05] LABS: Basophils # (A) 0.03 X 10*3/uL (0.00-0.10); Basophils % (A) 0.5 %; Eosinophils # (A) 0.07 X 10*3/uL (0.04-0.35); Eosinophils % (A) 1.1 %; HCT 35.6 % (37.2-46.3); HGB 11.3 d/dL (12.0-15.0); Lymphocytes # (A) 0.48 X 10*3/uL (0.90-5.00); Lymphocytes % (A) 7.8 %; MCH 30.3 pg (27.0-32.0); MCHC 31.7 d/dL (32.0-37.0); MCV 95.4 FL (80.0-97.0); Mean Platelet Volume 10.3 FL (9.5-12.2); Monocytes # (A) 0.99 X 10*3/uL (0.20-1.00); Monocytes % (A) 16.2 %; NRBC Per 100 WBC 0 X 10*3/uL (0.00-0.01); Neutrophils # (A) 4.51 X 10*3/uL (1.80-7.70); Neutrophils % (A) 73.7 %; Platelet Count 276 X 10*3/uL (140-440); RBC 3.73 X 10*6/uL (4.10-5.20); RDW 13.6 % (11.5-14.5); WBC 6.12 X 10*3/uL (4.50-10.00)
[2023-04-09] MEDS: HYDROcodone/APAP 7.5-325MG 1 EACH TAB PO PRN (14:45)
[2023-04-09] MEDS: SENNOSIDES-DOCUSATE SODIUM 1 EACH TAB PO SCH (21:12)
[2023-04-10] MEDS: HYDROcodone/APAP 5-325MG 1 EACH TAB PO PRN (02:09)
[2023-04-10] MEDS: PANTOPRAZOLE SODIUM 40 MG GRANULE PKT PO SCH (06:57)
[2023-04-10] MEDS: GABAPENTIN 300 MG CAP PO SCH ×2 (09:56→19:41)
[2023-04-10] MEDS: hydroCHLOROthiazide 12.5 MG CAP PO SCH (09:56)
[2023-04-10] MEDS: amLODIPine 5 MG TAB PO SCH (09:56)
[2023-04-10] MEDS: FENOFIBRATE 160 MG TAB PO SCH (09:56)
[2023-04-10] MEDS: MULTIVITAMINS, THERA 1 EACH TAB PO SCH (09:56)
[2023-04-10] MEDS: LOSARTAN 50 MG TAB PO SCH (09:56)
[2023-04-10] MEDS: NON FORMULARY DRUG (Mirabegron [Myrbetriq] 25 MG Tab.Er.24h) PO SCH (09:56)
[2023-04-10] MEDS: RIVAROXABAN 10 MG TAB PO SCH (09:56)
[2023-04-10] MEDS: FINGOLIMOD HCL 0.5 MG PO SCH (09:57)
--- NOTE | 2023-04-10 12:29 | P.PN ---
Subjective Progress Note Date: 04/10/23 Principal diagnosis: Left knee osteoarthritis Patient was seen at bedside this morning lying semirecumbent position sitting in chair. Patient says she is still having some knee pain, however, patient does note some improvement with physical therapy. Patient says she has urinated daily since surgery. Patient says she has not had bowel movement yet, however, patient says she has been passing gas. Patient is hoping to go to swing bed upon discharge and is hoping to go there today or tomorrow. Objective - Vital Signs Vital signs: Vital Signs Temp 98.0 F 04/10/23 07:19 Pulse 75 04/10/23 07:56 Resp 16 04/10/23 07:56 BP 125/79 04/10/23 07:19 Pulse Ox 95 04/10/23 07:19 FiO2 Intake & Output 04/09/23 04/10/23 04/10/23 18:59 06:59 18:59 Other: Voiding Method Toilet Toilet # Voids 5 # Bowel Movements 2 - Exam Left knee: Incision is clean, dry, and intact. The exofin fusion tape is in good condition. There is minimal soft tissue swelling and ecchymosis surrounding the medial and lateral aspects of the incision. Calf is soft, no tenderness with palpation. Plantar flexion, dorsiflexion, EHL, FHL are intact. Sensory exam to light touch throughout the extremity is intact, dorsal pedis pulses 2+. - Labs CBC & Chem 7: 04/09/23 06:00 04/08/23 06:26 Labs: Abnormal Lab Results - Last 24 Hours (Table) 04/09/23 Range/Units 06:00 RBC 3.73 L (4.10-5.20) X 10*6/uL Hgb 11.3 L (12.0-15.0) d/dL Hct 35.6 L (37.2-46.3) % MCHC 31.7 L (32.0-37.0) d/dL Lymphocytes # 0.48 L (0.90-5.00) X 10*3/uL Assessment and Plan Assessment: 1. Left knee osteoarthritis - Postoperative day #4 status post left total knee arthroplasty Plan: 1. Left knee osteoarthritis - left total knee arthroplasty performed 04/06/2023. Patient stable at bedside this morning. Patient continues to work with PT/OT daily. Order was placed on 04/07/2023 for inpatient stay greater than 2 days. Due to PT/OT recommendations patient's status, we are recommending discharge to rehab. This is postoperative day #4 and patient is re justyna to go to rehab from an orthopedic standpoint. Patient would like to go to rehab upon discharge. Plan for discharge to rehab when swing bed can accommodate. We'll continue to follow patient during her stay in hospital. 2. Appreciate medical management 3. Pain management - [place] 4. GI prophylaxis - senna 5. DVT prophylaxis - Xarelto 6. PT/OT - weightbearing as tolerated walker 7. Encourage incentive spirometer use 8. Discharge planning - Plan for discharge to rehab likely Wednesday if swing bed cannot accomodate until then Time with Patient: Less than 30
--- NOTE | 2023-04-10 13:50 | P.PN ---
Subjective Progress Note Date: 04/10/23 patient is a 72-year-old lady with past medical history significant for hypertension, hyperlipidemia, GERD who presented to the hospital for elective left total knee arthroplasty. Patient has been following up outpatient with orthopedics for couple of years and her left knee pain has been worsening. Orthopedic discussed with her regarding her treatment options, since she is symptomatic day decided to proceed with surgery. Patient had surgery done on 04/06. Postoperatively the medicine team were consulted for medical management 04/08. Patient seen and examined. Blood pressure is elevated, will reintroduce patient's losartan and hydrochlorothiazide. Still complaining of left knee pain, states pain is poorly controlled 04/09. Patient seen and examined. Currently waiting on insurance authorization for rehab placement. States pain is better controlled. 04/10. Patient seen and examined. States she continues to feel better, pain is better controlled. Waiting on rehab placement REVIEW OF SYSTEMS: CONSTITUTIONAL: No fever, no malaise,. CARDIOVASCULAR: No chest pain, no palpitations, no syncope. PULMONARY: No shortness of breath, no cough, GASTROINTESTINAL: No diarrhea, no nausea, no vomiting, no abdominal pain. NEUROLOGICAL: No headaches, no weakness, PHYSICAL EXAMINATION: GENERAL: The patient is alert and oriented x3, not in any acute distress. Well d eveloped, well nourished. HEENT: Pupils are round and equally reacting to light. EOMI. No scleral icterus. No conjunctival pallor. Normocephalic, atraumatic. No pharyngeal erythema. No thyromegaly. CARDIOVASCULAR: S1 and S2 present. No murmurs, rubs, or gallops. PULMONARY: Chest is clear to auscultation, no wheezing or crackles. ABDOMEN: Soft, nontender, nondistended, normoactive bowel sounds. No palpable organomegaly. MUSCULOSKELETAL: Left knee surgical incision seen, no erythema EXTREMITIES: No cyanosis, clubbing, or pedal edema. NEUROLOGICAL: Gross neurological examination did not reveal any focal deficits. SKIN: No rashes. Assessment and plan Left knee severe lateral compartment osteoarthrosis status post left knee arthroplasty History of multiple sclerosis Hypertension Hyperlipidemia Monitor vital signs Monitor CBC Monitor CMP Continue pain management per orthopedics Continue DVT prophylaxis per orthopedics Continue Norvasc, HCTZ and losartan Continue fenofibrate Continue Neurontin PT and OT to rehab, waiting on placement Labs and medication were reviewed.. Continue same treatment. Continue with symptomatic treatment. Resume home medication. Monitor labs and vitals. DVT and GI prophylaxis. Further recommendations as per clinical course of the patient Dictation was produced using [employer] dictation software. please excuse any grammatical, word or spelling errors. Objective - Vital Signs Vital signs: Vital Signs Temp 98.0 F 04/10/23 07:19 Pulse 75 04/10/23 07:56 Resp 16 04/10/23 07:56 BP 125/79 04/10/23 07:19 Pulse Ox 95 04/10/23 07:19 FiO2 Intake & Output 04/09/23 04/10/23 04/10/23 18:59 06:59 18:59 Other: Voiding Method Toilet Toilet # Voids 5 # Bowel Movements 2 - Labs CBC & Chem 7: 04/09/23 06:00 04/08/23 06:26 Labs: Abnormal Lab Results - Last 24 Hours (Table) 04/09/23 Range/Units 06:00 RBC 3.73 L (4.10-5.20) X 10*6/uL Hgb 11.3 L (12.0-15.0) d/dL Hct 35.6 L (37.2-46.3) % MCHC 31.7 L (32.0-37.0) d/dL Lymphocytes # 0.48 L (0.90-5.00) X 10*3/uL
[2023-04-10] MEDS: HYDROcodone/APAP 7.5-325MG 1 EACH TAB PO PRN (18:30)
[2023-04-10] MEDS: SENNOSIDES-DOCUSATE SODIUM 1 EACH TAB PO SCH (19:41)
[2023-04-11] MEDS: PANTOPRAZOLE SODIUM 40 MG GRANULE PKT PO SCH (06:09)
[2023-04-11] MEDS: HYDROcodone/APAP 7.5-325MG 1 EACH TAB PO PRN ×3 (07:58→19:35)
[2023-04-11] MEDS: LOSARTAN 50 MG TAB PO SCH (07:59)
[2023-04-11] MEDS: FINGOLIMOD HCL 0.5 MG PO SCH (07:59)
[2023-04-11] MEDS: MULTIVITAMINS, THERA 1 EACH TAB PO SCH (07:59)
[2023-04-11] MEDS: hydroCHLOROthiazide 12.5 MG CAP PO SCH (07:59)
[2023-04-11] MEDS: RIVAROXABAN 10 MG TAB PO SCH (07:59)
[2023-04-11] MEDS: NON FORMULARY DRUG (Mirabegron [Myrbetriq] 25 MG Tab.Er.24h) PO SCH (07:59)
[2023-04-11] MEDS: FENOFIBRATE 160 MG TAB PO SCH (07:59)
[2023-04-11] MEDS: amLODIPine 5 MG TAB PO SCH (07:59)
[2023-04-11] MEDS: GABAPENTIN 300 MG CAP PO SCH ×2 (07:59→19:35)
--- NOTE | 2023-04-11 09:54 | P.PN ---
Subjective Progress Note Date: 04/11/23 Principal diagnosis: Left knee osteoarthritis Patient was seen at bedside this morning sitting up in a chair. Patient says she is hoping to shower at some point today. Patient says she is ready whenever swelling that can accept her. Patient says she has been trying to do exercises every couple hours. Patient mentions about every couple hours if she is lying in bed the knee begins to get stiff. Patient complains mostly of pain in the front of the knee. Patient says she has been applying ice packs throughout the day to her left knee. Patient says the pain medication has helped control the pain somewhat. Patient does note improvement daily since surgery was performed. Patient says she still has not had bowel movement yet, however, patient says she has been passing gas. Patient denies chest pain, fever, shortness breath, nausea, vomiting, change in vision, loss of bowel/bladder control. Objective - Vital Signs Vital signs: Vital Signs Temp 97.6 F 04/11/23 08:00 Pulse 86 04/11/23 08:00 Resp 15 04/11/23 08:00 BP 121/74 04/11/23 08:00 Pulse Ox 96 04/11/23 08:00 FiO2 Intake & Output 04/10/23 04/11/23 04/11/23 18:59 06:59 18:59 Other: Voiding Method Toilet Toilet # Voids 10 2 - Labs CBC & Chem 7: 04/09/23 06:00 04/08/23 06:26 Assessment and Plan Assessment: 1. Left knee osteoarthritis - Postoperative day #5 status post left total knee arthroplasty Plan: 1. Left knee osteoarthritis - left total knee arthroplasty performed 04/06/2023. Patient stable at bedside this morning. Patient continues to work with PT/OT daily. Order was placed on 04/07/2023 for inpatient stay greater than 2 days. Due to PT/OT recommendations patient's status, we are recommending discharge to rehab. This is postoperative day #5 and patient is ready to go to rehab from an orthopedic standpoint. Patient would like to go to rehab upon discharge. Plan for discharge to rehab when swing bed can accommodate. We'll continue to follow patient during her stay in hospital. 2. Appreciate medical management 3. Pain management - [place] 4. GI prophylaxis - senna 5. DVT prophylaxis - Xarelto 6. PT/OT - weightbearing as tolerated walker 7. Encourage incentive spirometer use 8. Discharge planning - Plan for discharge to rehab likely Wednesday if swing bed cannot accomodate until then Time with Patient: Less than 30
--- NOTE | 2023-04-11 13:00 | P.PN ---
Subjective Progress Note Date: 04/11/23 patient is a 72-year-old lady with past medical history significant for hypertension, hyperlipidemia, GERD who presented to the hospital for elective left total knee arthroplasty. Patient has been following up outpatient with orthopedics for couple of years and her left knee pain has been worsening. Orthopedic discussed with her regarding her treatment options, since she is symptomatic day decided to proceed with surgery. Patient had surgery done on 04/06. Postoperatively the medicine team were consulted for medical management 04/08. Patient seen and examined. Blood pressure is elevated, will reintroduce patient's losartan and hydrochlorothiazide. Still complaining of left knee pain, states pain is poorly controlled 04/09. Patient seen and examined. Currently waiting on insurance authorization for rehab placement. States pain is better controlled. 04/10. Patient seen and examined. States she continues to feel better, pain is better controlled. Waiting on rehab placement 04/11. Patient seen and examined. Vital signs stable. No acute issues overnight REVIEW OF SYSTEMS: CONSTITUTIONAL: No fever, no malaise,. CARDIOVASCULAR: No chest pain, no palpitations, no syncope. PULMONARY: No shortness of breath, no cough, GASTROINTESTINAL: No diarrhea, no nausea, no vomiting, no abdominal pain. NEUROLOGICAL: No headaches, no weakness, PHYSICAL EXAMINATION: GENERAL: The patient is alert and oriented x3, not in any acute distress. Well developed, well nourished. HEENT: Pupils are round and equally reacting to light. EOMI. No scleral icterus. No conjunctival pallor. Normocephalic, atraumatic. No pharyngeal erythema. No thyromegaly. CARDIOVASCULAR: S1 and S2 present. No murmurs, rubs, or gallops. PULMONARY: Chest is clear to auscultation, no wheezing or crackles. ABDOMEN: Soft, nontender, nondistended, normoactive bowel sounds. No palpable organomegaly. MUSCULOSKELETAL: Left knee surgical incision seen, no erythema EXTREMITIES: No cyanosis, clubbing, or pedal edema. NEUROLOGICAL: Gross neurological examination did not reveal any focal deficits. SKIN: No rashes. Assessment and plan Left knee severe lateral compartment osteoarthrosis status post left knee arthroplasty History of multiple sclerosis Hypertension Hyperlipidemia Monitor vital signs Monitor CBC Monitor CMP Continue pain management per orthopedics Continue DVT prophylaxis per orthopedics Continue Norvasc, HCTZ and losartan Continue fenofibrate Continue Neurontin PT and OT to rehab, waiting on placement Patient medically stable for discharge to rehab Labs and medication were reviewed.. Continue same treatment. Continue with symptomatic treatment. Resume home medication. Monitor labs and vitals. DVT and GI prophylaxis. Further recommendations as per clinical course of the patient Dictation was produced using [employer] dictation software. please excuse any grammatical, word or spelling errors. Objective - Vital Signs Vital signs: Vital Signs Temp 97.6 F 04/11/23 08:00 Pulse 86 04/11/23 08:00 Resp 15 04/11/23 08:00 BP 121/74 04/11/23 08:00 Pulse Ox 96 04/11/23 08:00 FiO2 Intake & Output 04/10/23 04/11/23 04/11/23 18:59 06:59 18:59 Other: Voiding Method Toilet Toilet Toilet # Voids 10 2 - Labs CBC & Chem 7: 04/09/23 06:00 04/08/23 06:26
[2023-04-11] MEDS: SENNOSIDES-DOCUSATE SODIUM 1 EACH TAB PO SCH (19:35)
[2023-04-12] MEDS: HYDROcodone/APAP 7.5-325MG 1 EACH TAB PO PRN ×4 (03:25→22:40)
[2023-04-12] MEDS: PANTOPRAZOLE SODIUM 40 MG GRANULE PKT PO SCH (06:45)
[2023-04-12] MEDS: FENOFIBRATE 160 MG TAB PO SCH (07:01)
[2023-04-12] MEDS: RIVAROXABAN 10 MG TAB PO SCH (07:01)
[2023-04-12] MEDS: LOSARTAN 50 MG TAB PO SCH (07:01)
[2023-04-12] MEDS: MULTIVITAMINS, THERA 1 EACH TAB PO SCH (07:02)
[2023-04-12] MEDS: FINGOLIMOD HCL 0.5 MG PO SCH (07:02)
[2023-04-12] MEDS: GABAPENTIN 300 MG CAP PO SCH ×2 (07:02→21:11)
[2023-04-12] MEDS: NON FORMULARY DRUG (Mirabegron [Myrbetriq] 25 MG Tab.Er.24h) PO SCH (07:02)
[2023-04-12] MEDS: hydroCHLOROthiazide 12.5 MG CAP PO SCH (07:02)
[2023-04-12] MEDS: amLODIPine 5 MG TAB PO SCH (07:02)
--- NOTE | 2023-04-12 09:29 | P.PN ---
Subjective Progress Note Date: 04/12/23 Principal diagnosis: Left knee osteoarthritis Patient was seen at bedside this morning sitting up in chair. Patient says she walked around the room several times yesterday and have been doing exercises throughout the day. Patient says she was able to take shower yesterday. P franko says she has been urinating daily. Patient says she still has not had bowel movement, however, patient says she has been passing gas.Patient complains mostly of pain in the front of the knee. Patient says she has been applying ice packs throughout the day to her left knee. Patient says the pain medication has helped control the pain somewhat. Patient does note improvement daily since roque rgery was performed. Patient denies chest pain, fever, shortness breath, nausea, vomiting, change in vision, loss of bowel/bladder control. Objective - Vital Signs Vital signs: Vital Signs Temp 98.8 F 04/12/23 06:43 Pulse 84 04/12/23 08:00 Resp 18 04/12/23 08:00 BP 136/71 04/12/23 06:43 Pulse Ox 95 04/12/23 06:43 FiO2 Intake & Output 04/11/23 04/12/23 04/12/23 18:59 06:59 18:59 Intake Total 360 Balance 360 Intake: Oral 360 Other: Voiding Method Toilet Toilet Toilet # Voids 3 2 - Exam Left knee: Incision is clean, dry, and intact. The exofin fusion tape is in good condition. There is minimal soft tissue swelling and ecchymosis surrounding the medial and lateral aspects of the incision. Calf is soft, no tenderness with palpation. Plantar flexion, dorsiflexion, EHL, FHL are intact. Sensory exam to light touch throughout the extremity is intact, dorsal pedis pulses 2+. - Labs CBC & Chem 7: 04/09/23 06:00 04/08/23 06:26 Assessment and Plan Assessment: 1. Left knee osteoarthritis - Postoperative day #6 status post left total knee arthroplasty Plan: 1. Left knee osteoarthritis - left total knee arthroplasty performed 04/06/2023. Patient stable at bedside this morning. Patient continues to work with PT/OT daily. Order was placed on 04/07/2023 for inpatient stay greater than 2 days. Due to PT/OT recommendations patient's status, we are recommending discharge to rehab. This is postoperative day #6 and patient is ready to go to rehab from an orthopedic standpoint. Patient would like to go to rehab upon discharge. Plan for discharge to rehab when swing bed can accommodate. We'll continue to follow patient during her stay in hospital. 2. Appreciate medical management 3. Pain management - [employer] 4. GI prophylaxis - senna 5. DVT prophylaxis - Xarelto 6. PT/OT - weightbearing as tolerated walker 7. Encourage incentive spirometer use 8. Discharge planning - Plan for discharge to rehab likely Wednesday if swing bed cannot accomodate until then Time with Patient: Less than 30
--- NOTE | 2023-04-12 13:40 | P.PN ---
Subjective Progress Note Date: 04/12/23 patient is a 72-year-old lady with past medical history significant for hypertension, hyperlipidemia, GERD who presented to the hospital for elective left total knee arthroplasty. Patient has been following up outpatient with orthopedics for couple of years and her left knee pain has been worsening. Orthopedic discussed with her regarding her treatment options, since she is symptomatic day decided to proceed with surgery. Patient had surgery done on 04/06. Postoperatively the medicine team were consulted for medical management 04/08. Patient seen and examined. Blood pressure is elevated, will reintroduce patient's losartan and hydrochlorothiazide. Still complaining of left knee pain, states pain is poorly controlled 04/09. Patient seen and examined. Currently waiting on insurance authorization for rehab placement. States pain is better controlled. 04/10. Patient seen and examined. States she continues to feel better, pain is better controlled. Waiting on rehab placement 04/11. Patient seen and examined. Vital signs stable. No acute issues overnight 04/12. Patient seen and examined. Denies any lethargy or weakness. Complaining of left knee pain. Has been ambulating in the hallways REVIEW OF SYSTEMS: CONSTITUTIONAL: No fever, no malaise,. CARDIOVASCULAR: No chest pain, no palpitations, no syncope. PULMONARY: No shortness of breath, no cough, GASTROINTESTINAL: No diarrhea, no nausea, no vomiting, no abdominal pain. NEUROLOGICAL: No headaches, no weakness, PHYSICAL EXAMINATION: GENERAL: The patient is alert and oriented x3, not in any acute distress. Well developed, well nourished. HEENT: Pupils are round and equally reacting to light. EOMI. No scleral icterus. No conjunctival pallor. Normocephalic, atraumatic. No pharyngeal erythema. No thyromegaly. CARDIOVASCULAR: S1 and S2 present. No murmurs, rubs, or gallops. PULMONARY: Chest is clear to auscultation, no wheezing or crackles. ABDOMEN: Soft, nontender, nondistended, normoactive bowel sounds. No palpable organomegaly. MUSCULOSKELETAL: Left knee surgical incision seen, no erythema EXTREMITIES: No cyanosis, clubbing, or pedal edema. NEUROLOGICAL: Gross neurological examination did not reveal any focal deficits. SKIN: No rashes. Assessment and plan Left knee severe lateral compartment osteoarthrosis status post left knee arthroplasty History of multiple sclerosis Hypertension Hyperlipidemia Monitor vital signs Monitor CBC Monitor CMP Continue pain management per orthopedics Continue DVT prophylaxis per orthopedics Continue Norvasc, HCTZ and losartan Continue fenofibrate Continue Neurontin PT and OT to rehab, waiting on placement Patient medically stable for discharge to rehab Labs and medication were reviewed.. Continue same treatment. Continue with symptomatic treatment. Resume home medication. Monitor labs and vitals. DVT and GI prophylaxis. Further recommendations as per clinical course of the patient Dictation was produced using [employer] dictation software. please excuse any grammatical, word or spelling errors. Objective - Vital Signs Vital signs: Vital Signs Temp 98.8 F 04/12/23 06:43 Pulse 84 04/12/23 08:00 Resp 18 04/12/23 08:00 BP 136/71 04/12/23 06:43 Pulse Ox 95 04/12/23 06:43 FiO2 Intake & Output 04/11/23 04/12/23 04/12/23 18:59 06:59 18:59 Intake Total 360 Balance 360 Intake: Oral 360 Other: Voiding Method Toilet Toilet Toilet # Voids 3 2 - Labs CBC & Chem 7: 04/09/23 06:00 04/08/23 06:26
[2023-04-12] MEDS: SENNOSIDES-DOCUSATE SODIUM 1 EACH TAB PO SCH (21:11)
[2023-04-13] MEDS: HYDROcodone/APAP 7.5-325MG 1 EACH TAB PO PRN ×2 (05:52→11:55)
[2023-04-13] MEDS: hydroCHLOROthiazide 12.5 MG CAP PO SCH (09:21)
[2023-04-13] MEDS: NON FORMULARY DRUG (Mirabegron [Myrbetriq] 25 MG Tab.Er.24h) PO SCH (09:21)
[2023-04-13] MEDS: FENOFIBRATE 160 MG TAB PO SCH (09:21)
[2023-04-13] MEDS: MULTIVITAMINS, THERA 1 EACH TAB PO SCH (09:21)
[2023-04-13] MEDS: FINGOLIMOD HCL 0.5 MG PO SCH (09:21)
[2023-04-13] MEDS: amLODIPine 5 MG TAB PO SCH (09:21)
[2023-04-13] MEDS: GABAPENTIN 300 MG CAP PO SCH (09:21)
[2023-04-13] MEDS: LOSARTAN 50 MG TAB PO SCH (09:21)
[2023-04-13] MEDS: RIVAROXABAN 10 MG TAB PO SCH (09:24)
[2023-04-13] MEDS: PANTOPRAZOLE SODIUM 40 MG GRANULE PKT PO SCH (09:25)
[2023-04-13 09:26] VITALS: BP 119/76; PULSE 90; RESP 17; TEMP 98.4
--- NOTE | 2023-04-13 10:54 | P.DS ---
Providers Date of admission: 04/08/23 10:49 Expected date of discharge: 04/13/23 Attending physician: Kiel Pat Consults: 04/06/23 10:40 Consult Physician Routine Consulting Provider: Anabella Dela Cruz Consult Reason/Comments: Medical Management s/p left total knee arthroplasty Do you want consulting provider notified?: Yes Primary care physician: Kirt Vazquez MD Hospital Course: Date of admission: 04/06/2023 Date of discharge: 04/13/2023 Admission diagnosis: Left knee osteoarthritis Discharge diagnosis: Same Attending physician: Dr. Pat Surgical procedures: Left total knee arthroplasty Brief history: Patient is a 72-year-old female with a history of progressive primary left knee osteoarthritis. At this point patient has failed conservative treatment measures and has opted to proceed with a elective total knee arthroplasty. Hospital course: Details of patient's surgery can be found in operative report. Patient tolerated the procedure well and was subsequently transported to orthopedic floor. Patient's orthopeidc and medical care was provided daily. Patient had daily laboratory tests performed for evaluation of overall blood counts. Patient had daily physical therapy to include strengthening range of motion as well as education with walker ambulation. Patient was treated with Xarelto for their postoperative DVT prophylaxis during their inpatient stay. Patient was noted to have a relatively uneventful postoperative course. Patient reported satisfactory pain control with oral pain medications by postoperative day 3. Patient showed satisfactory progress with physical therapy. Patient moved steadily through the program and had no difficulty meeting the goals by postoperative day 3. Given patient's otherwise satisfactory course and having met physical therapy goals, plan is to discharge patient to rehab on postoperative day 7. Discharge condition/disposition: Patient will be discharged to rehab in stable condition. Discharge medications: Instructions are given on resumption of patient's normal daily medications per primary care recommendation, in addition patient will be prescribed [place]; gabapentin; senna; Eliquis. Discharge instructions: 1. Wound care and infection precautions, keep incision dry and covered while showering, no lotions, creams, moisturizers. No soaking, tubs, pools, hottubs. Do not scrub over the incision. 2. Weight-bear as tolerated with walker / cane until follow-up. 3. Ice and elevate when necessary. Do not exceed 20 minutes per hour with ice pack. 4. Utilize compression sleeve until seen at first follow up appointment. 5. Visiting nursing care. 6. Home physical therapy including home CPM. 7. Pain meds and anticoagulants per prescription. 8. Pain medication has potential to cause constipation. Increase oral fluid and fiber intake. Contact primary care provider if you have not had a bowel movement within 48 hours after discharge 9. No anti-inflammatory medication until discussed at first post operative visit, this including Motrin, Aleve, Mobic, Diclofenac. 10. Follow up in office at 2 weeks postop with Justin Lanier PA-C / Ezequiel Valencia PA-C 11. Follow up with your primary care doctor 7-10 days after discharge. 12. Contact [facility] with any questions, . Assessment: PATIENT HAS HOME MEDS IN PHARMACY AND OMNICELL Left knee osteoarthritis Procedures: Left total knee arthroplasty Patient Condition at Discharge: Good Plan - Discharge Summary Discharge Rx Participant: Yes New Discharge Prescriptions: New HYDROcodone/APAP 7.5-325MG [[place] 7.5-325] 1 tab PO Q6HR PRN #24 tab PRN Reason: Pain Sennosides/Docusate Sodium [Senna Plus 8.6-50 mg Softgel] 1 each PO DAILY #20 capsule Gabapentin 300 mg PO BID #24 cap Apixaban [Eliquis] 2.5 mg PO BID #60 tab No Action Fingolimod HCl [Gilenya] 0.5 mg PO DAILY Mirabegron [Myrbetriq] 25 mg PO DAILY amLODIPine [Norvasc] 5 mg PO DAILY hydroCHLOROthiazide [Hydrodiuril] 12.5 mg PO DAILY Losartan [Cozaar] 50 mg PO DAILY Gabapentin [Neurontin] 300 mg PO BID Fenofibrate 160 mg PO DAILY Cholecalciferol [Vitamin D3 (25 Mcg = 1000 Iu)] 2,000 unit PO DAILY Vit C/E/Zn/Coppr/Lutein/Zeaxan [Preservision Areds 2 Softgel] 1 each PO BID Multivitamins, Thera [Multivitamin (formulary)] 1 tab PO DAILY Meclizine [Antivert] 12.5 mg PO DIRECTED PRN PRN Reason: Vertigo Albuterol Inhaler [Ventolin Hfa Inhaler] 1 - 2 puff INHALATION Q6H PRN PRN Reason: Shortness Of Breath Ibandronate Sodium [Boniva] 150 mg PO Q30D Pantoprazole Sodium [Protonix] 20 mg PO DAILY Meloxicam [Mobic] 15 mg PO DAILY Aspirin 81 mg PO DAILY Cranberry Fruit Extract [Cranberry] 500 mg PO BID Discharge Medication List Cholecalciferol [Vitamin D3 (25 Mcg = 1000 Iu)] 2,000 unit PO DAILY 05/17/18 [History] Fenofibrate 160 mg PO DAILY 05/17/18 [History] Fingolimod HCl [Gilenya] 0.5 mg PO DAILY 05/17/18 [History] Gabapentin [Neurontin] 300 mg PO BID 05/17/18 [History] Losartan [Cozaar] 50 mg PO DAILY 05/17/18 [History] Mirabegron [Myrbetriq] 25 mg PO DAILY 05/17/18 [History] Vit C/E/Zn/Coppr/Lutein/Zeaxan [Preservision Areds 2 Softgel] 1 each PO BID 05/17/18 [History] amLODIPine [Norvasc] 5 mg PO DAILY 05/17/18 [History] hydroCHLOROthiazide [Hydrodiuril] 12.5 mg PO DAILY 05/17/18 [History] Albuterol Inhaler [Ventolin Hfa Inhaler] 1 - 2 puff INHALATION Q6H PRN 03/30/23 [History] Ibandronate Sodium [Boniva] 150 mg PO Q30D 03/30/23 [History] Meclizine [Antivert] 12.5 mg PO DIRECTED PRN 03/30/23 [History] Meloxicam [Mobic] 15 mg PO DAILY 03/30/23 [History] Pantoprazole Sodium [Protonix] 20 mg PO DAILY 03/30/23 [History] Aspirin 81 mg PO DAILY 03/31/23 [History] Cranberry Fruit Extract [Cranberry] 500 mg PO BID 03/31/23 [History] Multivitamins, Thera [Multivitamin (formulary)] 1 tab PO DAILY 03/31/23 [History] Apixaban [Eliquis] 2.5 mg PO BID #60 tab 04/13/23 [Rx] Gabapentin 300 mg PO BID #24 cap 04/13/23 [Rx] HYDROcodone/APAP 7.5-325MG [[place] 7.5-325] 1 tab PO Q6HR PRN #24 tab 04/13/23 [Rx] Sennosides/Docusate Sodium [Senna Plus 8.6-50 mg Softgel] 1 each PO DAILY #20 capsule 04/13/23 [Rx] Follow up Appointment(s)/Referral(s): Ezequiel Valencia, EMILI [PHYSICIAN LEAD WELDER] - 04/22/23 10:50 am Patient Instructions/Handouts: *Surgery [facility] - On-Q Pain Pump Discharge Instructions, Knee Replacement (DC) Activity/Diet/Wound Care/Special Instructions: Orthopedic Discharge Instructions: 1. Wound care and infection precautions, keep incision dry and covered while showering, no lotions, creams, moisturizers. No soaking, pools, hot tubs. Do not scrub over incision. 2. Weight-bear as tolerated with walker / cane until follow-up. 3. Ice and elevate when necessary. Do not exceed 20 minutes per hour with ice pack. 4. Utilize compression sleeve until seen at first follow up appointment. 5. Pain meds and anticoagulants per prescription. 6. Pain medication has potential to cause constipation. Increase oral fluid and fiber intake. Contact primary care provider if you have not had a bowel movement within 48 hours after discharge. 7. No anti-inflammatory medication until discussed at first post operative visit, this including Motrin, Aleve, Mobic, Diclofenac. 8. Follow up in office at 2 weeks postop with Justin Lanier PA-C / Ezequiel Valencia PA-C 9. Follow up with your primary care doctor 7-10 days after discharge. 10. Contact [facility] with any questions, . Keep incision clean, dry, intact. While showering, cover fusion tape with Saran wrap. Keep fusion tape on until follow-up appointment in office in 2 weeks. Discharge Disposition: TRANSFER TO SNF/ECF
--- NOTE | 2023-04-13 11:07 | P.PN ---
Subjective Progress Note Date: 04/13/23 Principal diagnosis: Left knee osteoarthritis Patient was seen at bedside this morning sitting up in chair. Patient says she walked around the room several times yesterday and have been doing exercises throughout the day. Patient says she had noticed some increased swelling to the left ankle and left foot last night. She says she has been walking more over the past couple days. Patient denies any trauma/injury soft ankle/foot. Patient says she has been urinating daily. Patient says she still has not had bowel movement, however, patient says she has been passing gas.Patient complains mostly of pain in the front of the knee. Patient says she has been applying ice packs throughout the day to her left knee. Patient says the pain medication has helped control the pain somewhat. Patient does note improvement daily since surgery was performed. Patient says she is looking forward to going to rehab today. Patient denies chest pain, fever, shortness breath, nausea, vomiting, change in vision, loss of bowel/bladder control. Objective - Vital Signs Vital signs: Vital Signs Temp 98.4 F 04/13/23 07:35 Pulse 90 04/13/23 07:35 Resp 17 04/13/23 07:35 BP 119/76 04/13/23 07:35 Pulse Ox 93 L 04/13/23 07:35 FiO2 Intake & Output 04/12/23 04/13/23 04/13/23 18:59 06:59 18:59 Other: Voiding Method Toilet Toilet # Voids 1 # Bowel Movements 2 - Exam Left knee: Incision is clean, dry, and intact. The exofin fusion tape is in good condition. There is minimal soft tissue swelling and ecchymosis surrounding the medial and lateral aspects of the incision. There is some swelling present in the left ankle and pedal edema is present. Patient does have good circulation to left foot. Left foot is lukewarm to touch. Calf is soft, no tenderness with palpation. Plantar flexion, dorsiflexion, EHL, FHL are intact. Sensory exam to light touch throughout the extremity is intact, dorsal pedis pulses 2+. - Labs CBC & Chem 7: 04/09/23 06:00 04/08/23 06:26 Assessment and Plan Assessment: 1. Left knee osteoarthritis - Postoperative day #7 status post left total knee arthroplasty Plan: 1. Left knee osteoarthritis - left total knee arthroplasty performed 04/06/2023. Patient stable at bedside this morning. Patient continues to work with PT/OT daily. Discharge to rehab today 2. Appreciate medical management 3. Pain management - [place] 4. GI prophylaxis - senna 5. DVT prophylaxis - Xarelto 6. PT/OT - weightbearing as tolerated walker 7. Encourage incentive spirometer use 8. Discharge planning - discharge to rehab today Time with Patient: Less than 30
--- NOTE | 2023-04-13 14:43 | P.PN ---
Subjective Progress Note Date: 04/13/23 patient is a 72-year-old lady with past medical history significant for hypertension, hyperlipidemia, GERD who presented to the hospital for elective left total knee arthroplasty. Patient has been following up outpatient with orthopedics for couple of years and her left knee pain has been worsening. Orthopedic discussed with her regarding her treatment options, since she is symptomatic day decided to proceed with surgery. Patient had surgery done on 04/06. Postoperatively the medicine team were consulted for medical management 04/08. Patient seen and examined. Blood pressure is elevated, will reintroduce patient's losartan and hydrochlorothiazide. Still complaining of left knee pain, states pain is poorly controlled 04/09. Patient seen and examined. Currently waiting on insurance authorization for rehab placement. States pain is better controlled. 04/10. Patient seen and examined. States she continues to feel better, pain is better controlled. Waiting on rehab placement 04/11. Patient seen and examined. Vital signs stable. No acute issues overnight 04/12. Patient seen and examined. Denies any lethargy or weakness. Complaining of left knee pain. Has been ambulating in the hallways 04/13. Patient seen and examined. Being discharged to rehab in stable condition today REVIEW OF SYSTEMS: CONSTITUTIONAL: No fever, no malaise,. CARDIOVASCULAR: No chest pain, no palpitations, no syncope. PULMONARY: No shortness of breath, no cough, GASTROINTESTINAL: No diarrhea, no nausea, no vomiting, no abdominal pain. NEUROLOGICAL: No headaches, no weakness, PHYSICAL EXAMINATION: GENERAL: The patient is alert and oriented x3, not in any acute distress. Well developed, well nourished. HEENT: Pupils are round and equally reacting to light. EOMI. No scleral icterus. No conjunctival pallor. Normocephalic, atraumatic. No pharyngeal erythema. No thyromegaly. CARDIOVASCULAR: S1 and S2 present. No murmurs, rubs, or gallops. PULMONARY: Chest is clear to auscultation, no wheezing or crackles. ABDOMEN: Soft, nontender, nondistended, normoactive bowel sounds. No palpable organomegaly. MUSCULOSKELETAL: Left knee surgical incision seen, no erythema EXTREMITIES: No cyanosis, clubbing, or pedal edema. NEUROLOGICAL: Gross neurological examination did not reveal any focal deficits. SKIN: No rashes. Assessment and plan Left knee severe lateral compartment osteoarthrosis status post left knee arthroplasty History of multiple sclerosis Hypertension Hyperlipidemia Monitor vital signs Monitor CBC Monitor CMP Continue pain management per orthopedics Continue DVT prophylaxis per orthopedics Continue Norvasc, HCTZ and losartan Continue fenofibrate Continue Neurontin Being discharged to rehab in stable condition today Patient medically stable for discharge to rehab Labs and medication were reviewed.. Continue same treatment. Continue with symptomatic treatment. Resume home medication. Monitor labs and vitals. DVT and GI prophylaxis. Further recommendations as per clinical course of the patient Dictation was produced using [email or web address] dictation software. please excuse any grammatical, word or spelling errors. Objective - Vital Signs Vital signs: Vital Signs Temp 98.4 F 04/13/23 07:35 Pulse 90 04/13/23 08:00 Resp 17 04/13/23 08:00 BP 119/76 04/13/23 07:35 Pulse Ox 93 L 04/13/23 07:35 FiO2 Intake & Output 04/12/23 04/13/23 04/13/23 18:59 06:59 18:59 Other: Voiding Method Toilet Toilet Toilet # Voids 1 # Bowel Movements 2 - Labs CBC & Chem 7: 04/09/23 06:00 04/08/23 06:26
== END 2023-04-13 13:37 | disposition swing bed (61) | DRG 470 ==
LOC: OR 06:49 → 4SSUR 10:51 → OR 04-08 10:49
PROVIDERS: ADMIT Orthopaedic Surgery; ATTEND Orthopaedic Surgery
PROC: 0SRD0J9 Replacement of Left Knee Joint with Synthetic Substitute, Cemented, Open Approach (ICD-10-PCS; principal; 2023-04-08)
DX: M17.12 Unilateral primary osteoarthritis, left knee (principal); G35 Multiple sclerosis; E78.1 Pure hyperglyceridemia; E78.5 Hyperlipidemia, unspecified; G89.18 Other acute postprocedural pain; I10 Essential (primary) hypertension; N32.81 Overactive bladder; M50.30 Other cervical disc degeneration, unspecified cervical region; H35.30 Unspecified macular degeneration; I34.0 Nonrheumatic mitral (valve) insufficiency; K21.9 Gastro-esophageal reflux disease without esophagitis; M54.30 Sciatica, unspecified side; Z79.82 Long term (current) use of aspirin; Z79.1 Long term (current) use of non-steroidal anti-inflammatories (NSAID); Z79.83 Long term (current) use of bisphosphonates; Z79.899 Other long term (current) drug therapy; Z87.440 Personal history of urinary (tract) infections; Z87.442 Personal history of urinary calculi; Z85.3 Personal history of malignant neoplasm of breast; Z86.73 Personal history of transient ischemic attack (TIA), and cerebral infarction without residual deficits; Z86.14 Personal history of Methicillin resistant Staphylococcus aureus infection; Z91.81 History of falling; Z92.21 Personal history of antineoplastic chemotherapy; Z88.2 Allergy status to sulfonamides; Z88.8 Allergy status to other drugs, medicaments and biological substances
CPT/HCPCS: 64448; 64999; 80053; 85025; 85027; 94760

== ENCOUNTER → 2023-10-18 | Outpatient (CLI) | payer MEDICARE ==
[2023-10-18 11:11] VITALS: BP 168/81; PULSE 58; RESP 16; TEMP 97.5
--- NOTE | 2023-10-18 14:21 | P.PAINPG ---
PQRS Measure Charge Sheet Comment: HISTORY OF PRESENT ILLNESS: A 73 yr old female w at side as a referral from Dr Brooks presents today w severe and chronic LBP secondary to post laminectomy syndrome for evaluation. Pt states pain level is provoked at 8 /10 in intensity, constant, localized in the lumbar spine, predominantly axial, dull in character w occasional shooting pain towards the BL buttocks and hips. Pain is provoked by walking for periods > 10 min. Pain is alleviated by PT x 5 wks which ended in Sep 2023, medications (Mob ic, Neurontin), manual massage, repositioning and rest. Oswestry axial pain score at 35. PMH: OA, CVA, GERD, HTN, MS, OAB PSH: L4-L5 Laminectomy, Breast CA, R Masectomy w Reconstruction, L Breast Bi opsy, L Total Knee Arthroplasty (2022), Colonoscopy (2017),Nephrolithiasis, Cholecystectomy, Thyroid Biopsy, Trans Incisionless Funiplication (2010), Lumbar Surgery (2021) SH: Negative x3 FH: Fa- Pancreatic CA All: See list Meds: See list REVIEW OF ORGAN SYSTEMS: CONSTITUTIONAL: No fevers or chills. No recent weight loss. NEUROLOGICAL: + numbness and tingling along the distal extremities. No seizure disorders or headaches. MUSCULOSKELETAL: + pain PSYCHIATRIC: Denies current depression or suicidal thoughts. Physical Examinations : Constitutional : Cooperative , not in acute distress . Neurologic : Cranial nerve II to XII intact. No focal neurological deficits. Psychiatric : alert & oriented x 3. Matching mood & appropriate affect. Judgment & insight intact. Musculoskeletal : Cervical Spine Motor strength in the deltoid and biceps: Normal right side. Normal Left side Motor strength biceps and the wrist extensors: Normal right side . Normal left side Motor strength in the triceps muscle: Normal right side. Normal left side Deep tendon reflexes: Normal at the biceps. Normal at Brachioradialis. Normal at triceps Vertebral body tenderness to deep palpation over Cervical facet loading test: positive bilaterally Spurling test: positive bilaterally Neck distraction test: positive bilaterally Reinaldo sign: positive bilaterally Lumbar spine +Vertical incisional scar intact Motor strength lower extremities ,thigh and legs 5/5 Right side , 5/5 Left side Deep tendon reflexes : Normal Knee Jerk. Normal Ankle Jerk Vertebral body tenderness over L4 Callahan Test positive over L4-L5 BL Lumbar facet Loading Test: positive Right / positive Left Range of motion of the lumbar spine Flexion 30 degrees, extension 10 degrees Straight Leg Raise test: Left/ Right positive at degree Corbin test: positive right / positive left. Severe tenderness over the Sacroiliac joint on the Right / Left sides Gaenslen test: positive bilaterally Seated flexion test: positive bilaterally. Sacral spine : Severe tenderness over the Sacroiliac joint: right side / left side Range of motion: Flexion of the lumbar spine <60 degrees Range of motion: Extension of the lumbar spine <20 degrees Gaenslen's Test positive Corbin test: positive right side / left side Thigh Thrust Test Sacral Thrust Test Imaging: CT noncontrast of the lumbar spine from 10/23/2021 reviewed Assessment/ Plan : L4L5 anterolisthesis Recommendation of BL TFESI L4-L5 #1. May need a series of injections for optimal pain relief. Risks, benefits of procedure discussed and patient verbalized understanding. Admits to anti- coagulant use or medical history of diabetes. Protocol for discontinuation/ continuation of medications [place] procedure discussed. All questions answered. I have spent greater than 30 minutes on patient care today. Dr Jama was available by phone for the evaluation of this patient. The time was used to review the medical records including relevant urine studies and Prescription history (MAPs), review of the available imaging, evaluation and examination of the patient, coordination of care with the medical staff and if applicable referring physicians, as well as creation of the medical record - Pain Location Bilateral Lower Back Non-Pharmacological Interventions: Inactivity, Sitting Pharmacological Interventions: Scheduled Medication PQRS Narrative: Smoking Status Never smoker Home Medications: Ambulatory Orders Cholecalciferol [Vitamin D3 (25 Mcg = 1000 Iu)] 2,000 unit PO DAILY 05/17/18 Fenofibrate 160 mg PO DAILY 05/17/18 Fingolimod HCl [Gilenya] 0.5 mg PO DAILY 05/17/18 Gabapentin [Neurontin] 300 mg PO BID 05/17/18 Losartan [Cozaar] 50 mg PO DAILY 05/17/18 Mirabegron [Myrbetriq] 25 mg PO DAILY 05/17/18 Vit C/E/Zn/Coppr/Lutein/Zeaxan [Preservision Areds 2 Softgel] 1 each PO BID 05/17/18 amLODIPine [Norvasc] 5 mg PO DAILY 05/17/18 hydroCHLOROthiazide [Hydrodiuril] 12.5 mg PO DAILY 05/17/18 Albuterol Inhaler [Ventolin Hfa Inhaler] 1 - 2 puff INHALATION Q6H PRN 03/30/23 Ibandronate Sodium [Boniva] 150 mg PO Q30D 03/30/23 Meclizine [Antivert] 12.5 mg PO DIRECTED PRN 03/30/23 Meloxicam [Mobic] 15 mg PO DAILY 03/30/23 Pantoprazole Sodium [Protonix] 20 mg PO DAILY 03/30/23 Aspirin 81 mg PO DAILY 03/31/23 Cranberry Fruit Extract [Cranberry] 500 mg PO BID 03/31/23 Multivitamins, Thera [Multivitamin (formulary)] 1 tab PO DAILY 03/31/23 Apixaban [Eliquis] 2.5 mg PO BID #60 tab 04/13/23 Gabapentin 300 mg PO BID #24 cap 04/13/23 HYDROcodone/APAP 7.5-325MG [[place] 7.5-325] 1 tab PO Q6HR PRN #24 tab 04/13/23 Sennosides/Docusate Sodium [Senna Plus 8.6-50 mg Softgel] 1 each PO DAILY #20 capsule 04/13/23 Controlled Substance Measures - Controlled Substance Measures Is patient prescribed a controlled substance at discharge?: No
== END ==
LOC: PNWHC3 10:21
PROVIDERS: ATTEND Specialist
DX: M43.16 Spondylolisthesis, lumbar region (principal); M43.26 Fusion of spine, lumbar region; G89.18 Other acute postprocedural pain; M19.90 Unspecified osteoarthritis, unspecified site; M54.50 Low back pain, unspecified; K21.9 Gastro-esophageal reflux disease without esophagitis; I10 Essential (primary) hypertension; G35 Multiple sclerosis; Z88.5 Allergy status to narcotic agent; Z88.8 Allergy status to other drugs, medicaments and biological substances; Z88.2 Allergy status to sulfonamides; Z88.1 Allergy status to other antibiotic agents; Z79.82 Long term (current) use of aspirin; Z79.01 Long term (current) use of anticoagulants; Z79.899 Other long term (current) drug therapy
CPT/HCPCS: 99211

== ENCOUNTER → 2023-11-02 | Day surgery (SDC) | payer MEDICARE ==
[2023-10-29 10:08] VITALS: BMI 33.9
[~2023-11-02] MED LIST changes: -ACETAMINOPHEN TAB 500 MG TAB PO PRN; +DEXAMETHASONE SOD PHOSPHATE 10 MG/ML 1 ML VIAL ONE; +IOPAMIDOL M200 10 ML VIAL ONE; +LACTATED RINGERS 1,000 ML IV SCH; -MELOXICAM 7.5 MG TAB PO PRN; -TRANEXAMIC 1,000 MG/100ML-NACL 1,000 MG in SALINE 1 100ML.BAG IVPB PRN; -VANCOMYCIN 1,500 MG in SODIUM CHLORIDE 0.9% 500 ML 500 ML IVPB PRN
--- NOTE | 2023-11-02 13:00 | P.PCN ---
Date of Procedure: 11/02/23 Operative Findings: PREOPERATIVE DIAGNOSIS: Lumbar radiculopathy POSTOPERATIVE DIAGNOSIS: Lumbar radiculopathy PROCEDURE 1. Transforaminal epidural steroid injection under fluoroscopic guidance bilateral L4-L5 2. Lumbar epidurogram IMAGING Fluoroscopy was used, images where saved to the medical record ANESTHESIA: Patient re-evaluated immediately prior to sedation Local only EBL: Minimal PROCEDURE DESCRIPTION / TECHNIQUE: The patient was seen and identified in the preoperative area. Risks, benefits, complications, and alternatives were discussed with the patient. The patient agreed to proceed with the procedure and signed the consent, vital signs were stable prior to the procedure. Patient was taken to the OR and time out was completed. The patient was placed in the prone position on procedure table and a pillow was placed under the abdomen to reduce lumbar lordosis. The lumbosacral area was prepped and draped in the usual sterile fashion. Vital signs were closely monitored during the procedure. Conscious sedation was used. Using oblique fluoroscopy, the chin of the "Leon dog" at the pedicle and the skin and deeper tissues just below was localized with 1% lidocaine. Subsequently, a 22-gauge 5-inch spinal needle was advanced under a tunneled view fluoroscopic guidance just underneath the chin of the "Leon dog". Under lateral fluoroscopy, the needle was then advanced to the posterior border interforaminal space. After negative aspiration of CSF and blood and with no paresthesias, 1 mL of Omnipaque-240 contrast dye was injected excellent epidurogram. Subsequently, a solution totalling 2ml of dexamethasone and PFNS was injected after negative aspiration (total of 10mg of dexamethasone was used). The needle was removed intact. COMPLICATIONS: None DISPOSITION: The patient was placed in a supine position and transferred to the recovery area in a stable condition for observation. There was no evidence of lower extremity motor or sensory deficit after the procedure. Patient was discharged from the recovery room after meeting discharge criteria. Home discharge instructions were given to the patient by the staff. The patient was reexamined prior to discharge. Follow up as directed.
[2023-11-02 13:05] VITALS: RESP 16; TEMP 97.1
--- NOTE | 2023-11-02 13:08 | FL ---
EXAMINATION TYPE: FL guided pain mgmt statistic DATE OF EXAM: 11/02/2023 HISTORY: Fluoroscopy time Total dose area product (DAP) in uGy*m?, mGy*cm? (or similar): 0.57024 IMPRESSION: 1. Fluoroscopy time.
[2023-11-02 13:41] VITALS: BP 161/89; PULSE 62
== END ==
LOC: ORPAIN 11:55
PROVIDERS: ATTEND Hospitalist
DX: M54.16 Radiculopathy, lumbar region (principal); Z79.82 Long term (current) use of aspirin; Z88.1 Allergy status to other antibiotic agents; Z88.8 Allergy status to other drugs, medicaments and biological substances
CPT/HCPCS: 64483; J1100; Q9966

== ENCOUNTER → 2023-11-18 | Outpatient (CLI) | payer MEDICARE ==
--- NOTE | 2023-11-18 13:29 | XR ---
EXAM TYPE: LUMBAR SPINE X RAY SERIES COMPARISON: NONE HISTORY: Lower back pain TECHNIQUE: 4 views are submitted. FINDINGS: Alignment is anatomic. The pedicles are intact. The transverse processes are intact. There is diff use osteopenia with severe multilevel degenerative disc disease. Postsurgical change at L4-L5 with gr matteo 1 anterior listhesis. Mild superior endplate deformity appears chronic. There is ectasia of the distal abdominal aorta measuring a maximum dimension on the lateral view of 2 .4 cm with atherosclerotic changes. Postcholecystectomy changes noted. Diffuse osteopenia. Bilateral SI joint arthropathy. IMPRESSION: 1. Postoperative changes L4-L5 with grade 1 anterolisthesis. 2. Severe degenerative disc disease at all levels suspect multilevel foraminal encroachment.
[2023-11-18 13:39] VITALS: BP 171/85; PULSE 85; RESP 16
--- NOTE | 2023-11-18 15:16 | P.PAINPG ---
PQRS Measure Charge Sheet Comment: HISTORY OF PRESENT ILLNESS: A 73 yr old female w at side presents today w severe and chronic LBP secondary to post laminectomy syndrome for evaluation s/p BL TFESI L4-5 #2. Pt states she experienced 10 % pain relief x 2 wks s/p procedure. Pt states pain level is provoked at 8 /10 in intensity, constant, localized in the lumbar spine, predominantly axial, sharp in character w occasional shooting pain towards the buttocks. Pain is provoked by standing for periods > 10 min. Pain is alleviated by PT x 5 wks which ended in Sep 2023, physician guided home stretches daily since Sep 2023, medications, manual massage, repositioning and rest. Oswestry axial pain score at 35. Interventional procedures include BL TFESI L4-L5 x1 Medications include Neurontin, Mobic REVIEW OF ORGAN SYSTEMS: CONSTITUTIONAL: No fevers or chills. No recent weight loss. NEUROLOGICAL: + numbness and tingling along the distal extremities. No seizure disorders or headaches. MUSCULOSKELETAL: + pain PSYCHIATRIC: Denies current depression or suicidal thoughts. Physical Examinations : Constitutional : Cooperative , not in acute distress . Neurologic : Cranial nerve II to XII intact. No focal neurological deficits. Psychiatric : alert & oriented x 3. Matching mood & appropriate affect. Judgment & insight intact. Musculoskeletal : Cervical Spine Motor strength in the deltoid and biceps: Normal right side. Normal Left side Motor strength biceps and the wrist extensors: Normal right side . Normal left side Motor strength in the triceps muscle: Normal right side. Normal left side Deep tendon reflexes: Normal at the biceps. Normal at Brachioradialis. Normal at triceps Vertebral body tenderness to deep palpation over Cervical facet loading test: positive bilaterally Spurling test: positive bilaterally Neck distraction test: positive bilaterally Reinaldo sign: positive bilaterally Lumbar spine +Vertical incisional scar intact Motor strength lower extremities ,thigh and legs 5/5 Right side , 5/5 Left side Deep tendon reflexes : Normal Knee J erk. Normal Ankle Jerk Vertebral body tenderness over L4 Callahan Test positive over L4-L5 BL Lumbar facet Loading Test: positive Right / positive Left Range of motion of the lumbar spine Flexion 30 degrees, extension 10 degrees Straight Leg Raise test: Left/ Right positive at degree Corbin test: positive right / positive left. Severe tenderness over the Sacroiliac joint on the Right / Left sides Gaenslen test: positive bilaterally Seated flexion test: positive bilaterally. Sacral spine : Severe tenderness over the Sacroiliac joint: right side / left side Range of motion: Flexion of the lumbar spine <60 degrees Range of motion: Extension of the lumbar spine <20 degrees Gaenslen's Test positive Corbin test: positive right side / left side Thigh Thrust Test Sacral Thrust Test Imaging: CT noncontrast of the lumbar spine from 10/23/2021 reviewed Assessment/ Plan : L4L5 anterolisthesis, post lumbar laminectomy syndrome Recommendation of lumbar x ray M51.36 May need additional testing if indicated. All questions answered. I have spent greater than 30 minutes on patient care today. Dr Jama was available by phone for the evaluation of this patient. The time was used to review the medical records including relevant urine studies and Prescription history (MAPs), review of the available imaging, evaluation and examination of the patient, coordination of care with the medical staff and if applicable referring physicians, as well as creation of the medical record PQRS Narrative: Smoking Status Never smoker Hx Alcohol Use (MH) No Home Medications: Ambulatory Orders Cholecalciferol [Vitamin D3 (25 Mcg = 1000 Iu)] 2,000 unit PO QAM 05/17/18 Fenofibrate 160 mg PO QAM 05/17/18 Fingolimod HCl [Gilenya] 0.5 mg PO QAM 05/17/18 Losartan [Cozaar] 100 mg PO QAM 05/17/18 Mirabegron [Myrbetriq] 25 mg PO QAM 05/17/18 Vit C/E/Zn/Coppr/Lutein/Zeaxan [Preservision Areds 2 Softgel] 1 each PO BID 05/17/18 Albuterol Inhaler [Ventolin Hfa Inhaler] 1 - 2 puff INHALATION Q6H PRN 03/30/23 Ibandronate Sodium [Boniva] 150 mg PO Q30D 03/30/23 Meclizine [Antivert] 12.5 mg PO DIRECTED PRN 03/30/23 Meloxicam [Mobic] 15 mg PO QAM 03/30/23 Pantoprazole Sodium [Protonix] 20 mg PO QAM 03/30/23 Aspirin 81 mg PO QAM 03/31/23 Cranberry Fruit Extract [Cranberry] 500 mg PO BID 03/31/23 Gabapentin 300 mg PO BID #24 cap 04/13/23 Potassium Chloride ER [K-Dur 20] 20 meq PO QAM 10/29/23 Sennosides/Docusate Sodium [Senna Plus 8.6-50 mg Softgel] 1 each PO DAILY PRN 10/29/23 Controlled Substance Measures - Controlled Substance Measures Is patient prescribed a controlled substance at discharge?: No
== END ==
LOC: PNWHC3 11:43
PROVIDERS: ATTEND Specialist
DX: M51.36 Other intervertebral disc degeneration, lumbar region (principal); M43.16 Spondylolisthesis, lumbar region; M96.1 Postlaminectomy syndrome, not elsewhere classified; Z88.8 Allergy status to other drugs, medicaments and biological substances; Z88.2 Allergy status to sulfonamides; Z88.1 Allergy status to other antibiotic agents
CPT/HCPCS: 72100; G0463; 99211

== ENCOUNTER → 2023-12-10 | Outpatient (CLI) | payer MEDICARE ==
--- NOTE | 2023-12-10 12:14 | MR ---
EXAMINATION TYPE: MR lumbar spine wo con DATE OF EXAM: 12/10/2023 COMPARISON: 11/20/2014 HISTORY: Low back pain into buttocks TECHNIQUE: T1 and T2 axial and sagittal images of the lumbar spine are submitted. FINDINGS: There is no abnormal signal seen within the visualized spinal cord or paraspinal soft tissu es. Postsurgical changes L4-L5 with grade 1 anterolisthesis. Parapelvic left renal cysts. Scoliotic curvature of the spine. Multilevel severe degenerative disc di sease with vacuum disc at virtually all levels. At L1-2 there is severe degenerative disc disease with diffuse disc bulging and facet arthropathy. Mi ld bilateral foraminal encroachment greater on the right due to greater right-sided facet arthropathy . At L2-3 there is severe degenerative disc disease with diffuse disc bulging very more focal small rig ht paracentral disc protrusion. Facet arthropathy and ligamentum flavum contribute to mild central st enosis and bilateral foraminal encroachment greater on the right. At L3-4 there is severe degenerative disc disease. Some limitation the spinal canal due to the surgic al change at the L4 level. Suspect broad-based disc bulging with hypertrophic changes and ligamentum flavum facets. Suspect central canal stenosis and moderate bilateral foraminal encroachment. Superior endplate deformity of L3 and L4 appears stable and chronic. At L4-5 there is postsurgical change. Motion artifact surgical artifact limiting assessment of the ca nal with no definite canal stenosis. Grade 1 anterolisthesis is stable and the neural foramina appear to be patent. Disc space are noted. At L5-S1 there is severe degenerative disc disease with surgical change involving L5. Mild bilateral foraminal encroachment greater on the left. No definite canal stenosis. Level limited by artifact fro m motion and surgery. Is some artifact with regard to the L5 level. Would recommend correlation with CT scan to exclude some degree of a lucency surrounding the L5 transpedicular screws. IMPRESSION: 1. Multilevel severe degenerative disc disease. There is multilevel canal stenosis and foraminal encr oachment as discussed above. 2. Postsurgical changes are stable from recent x-ray of 11/18/2023. 3. Recommend CT of the lumbar spine to assess the transpedicular screws of L5.
== END | disposition home or self-care (01) ==
LOC: RADMRIMAIN 10:33
PROVIDERS: ATTEND Specialist
DX: M51.36 Other intervertebral disc degeneration, lumbar region (principal); M99.73 Connective tissue and disc stenosis of intervertebral foramina of lumbar region
CPT/HCPCS: 72148

== ENCOUNTER → 2023-12-16 | Outpatient (CLI) | payer MEDICARE ==
[2023-12-16 11:25] VITALS: BP 142/84; PULSE 68; RESP 15; TEMP 98.5
--- NOTE | 2023-12-16 14:31 | P.PAINPG ---
PQRS Measure Charge Sheet Comment: HISTORY OF PRESENT ILLNESS: A 73 yr old female w at side presents today w severe and chronic LBP since 2015 secondary to L4-L5 post laminectomy syndrome for evaluation. Pt states pain level is provoked at 6 /10 in intensity, constant, localized in the lumbar spine, predominantly axial, sharp in character w occasional shooting pain towards the buttocks. Pain is provoked by standing for periods > 10 min. Pain is alleviated by PT x 5 wks which ended in Sep 2023, physician guided home stretches daily since Sep 2023, medications, manual massage, repositioning and rest. Oswestry axial pain score at 35. Interventional procedures include BL TFESI L4-L5 x1 Medications include Neurontin, Mobic REVIEW OF ORGAN SYSTEMS: CONSTITUTIONAL: No fevers or chills. No recent weight loss. NEUROLOGICAL: + numbness and tingling along the distal extremities. No seizure disorders or headaches. MUSCULOSKELETAL: + pain PSYCHIATRIC: Denies current depression or suicidal thoughts. Physical Examinations : Constitutional : Cooperative , not in acute distress . Neurologic : Cranial nerve II to XII intact. No focal neurological deficits. Psychiatric : alert & oriented x 3. Matching mood & appropriate affect. Judgment & insight intact. Musculoskeletal : Cervical Spine Motor strength in the deltoid and biceps: Normal right side. Normal Left side Motor strength biceps and the wrist extensors: Normal right side . Normal left side Motor strength in the triceps muscle: Normal right side. Normal left side Deep tendon reflexes: Normal at the biceps. Normal at Brachioradialis. Normal at triceps Vertebral body tenderness to deep palpation over Cervical facet loading test: positive bilaterally Spurling test: positive bilaterally Neck distraction test: positive bilaterally Reinaldo sign: positive bilaterally Lumbar spine +Vertical incisional scar intact Motor strength lower extremities ,thigh and legs 5/5 Right side , 5/5 Left side Deep tendon reflexes : Normal Knee Jerk. Normal Ankle Jerk Vertebral body tenderness over L5 Callahan Test positive over L5- S1 BL Lumbar facet Loading Test: positive Right / positive Left Range of motion of the lumbar spine Flexion 30 degrees, extension 10 degrees Straight Leg Raise test: Left/ Right positive at degree Corbin test: positive right / positive left. Severe tenderness over the Sacroiliac joint on the Right / Left sides Gaenslen test: positive bilaterally Seated flexion test: positive bilaterally. Sacral spine : Severe tenderness over the Sacroiliac joint: right side / left side Range of motion: Flexion of the lumbar spine <60 degrees Range of motion: Extension of the lumbar spine <20 degrees Gaenslen's Test positive Corbin test: positive right side / left side Thigh Thrust Test Sacral Thrust Test Imaging: CT noncontrast of the lumbar spine from 10/23/2021 reviewed MRI noncontrast of the lumbar spine from 12/10/23 reviewed Assessment/ Plan : L4L5 anterolisthesis, L4-5 post lumbar laminectomy syndrome Recommendation of Caudal MAI w Lysis. May need a series of injections for optimal pain relief. Risks, benefits of procedure discussed and pt verbalized understanding. Protocol for discontinuation/ continuation of medications delano procedure discussed. All questions answered. I have spent greater than 30 minutes on patient care today. Dr Jama was available by phone for the evaluation of this patient. The time was used to review the medical records including relevant urine studies and Prescription history (MAPs), review of the available imaging, evaluation and examination of the patient, coordination of care with the medical staff and if applicable referring physicians, as well as creation of the medical record PQRS Narrative: Smoking Status Never smoker Hx Alcohol Use (MH) No Home Medications: Ambulatory Orders Cholecalciferol [Vitamin D3 (25 Mcg = 1000 Iu)] 2,000 unit PO QAM 05/17/18 Fenofibrate 160 mg PO QAM 05/17/18 Fingolimod HCl [Gilenya] 0.5 mg PO QAM 05/17/18 Losartan [Cozaar] 100 mg PO QAM 05/17/18 Mirabegron [Myrbetriq] 25 mg PO QAM 05/17/18 Vit C/E/Zn/Coppr/Lutein/Zeaxan [Preservision Areds 2 Softgel] 1 each PO BID 05/17/18 Albuterol Inhaler [Ventolin Hfa Inhaler] 1 - 2 puff INHALATION Q6H PRN 03/30/23 Ibandronate Sodium [Boniva] 150 mg PO Q30D 03/30/23 Meclizine [Antivert] 12.5 mg PO DIRECTED PRN 03/30/23 Meloxicam [Mobic] 15 mg PO QAM 03/30/23 Pantoprazole Sodium [Protonix] 20 mg PO QAM 03/30/23 Aspirin 81 mg PO QAM 03/31/23 Cranberry Fruit Extract [Cranberry] 500 mg PO BID 03/31/23 Gabapentin 300 mg PO BID #24 cap 04/13/23 Potassium Chloride ER [K-Dur 20] 20 meq PO QAM 10/29/23 Sennosides/Docusate Sodium [Senna Plus 8.6-50 mg Softgel] 1 each PO DAILY PRN 10/29/23 Controlled Substance Measures - Controlled Substance Measures Is patient prescribed a controlled substance at discharge?: Yes When asked, does pt state using other controlled substances?: Yes If prescribed controlled substance>3 days was MAPS reviewed?: Prescribed <3 Days
== END ==
LOC: PNWHC3 10:19
PROVIDERS: ATTEND Specialist
DX: M96.1 Postlaminectomy syndrome, not elsewhere classified (principal); G89.29 Other chronic pain; M43.16 Spondylolisthesis, lumbar region; Z88.2 Allergy status to sulfonamides; Z88.1 Allergy status to other antibiotic agents; Z88.8 Allergy status to other drugs, medicaments and biological substances
CPT/HCPCS: 99211

== ENCOUNTER 2024-03-31 08:00 | Day surgery (SDC) | payer MEDICARE ==
[2024-03-31] MEDS ORDERED: IOPAMIDOL M200 10 ML VIAL ONE (10:21)
[2024-03-31] MEDS ORDERED: methylPREDNISolone ACETATE 40 MG/ML 1 ML VIAL ONE (10:21)
--- NOTE | 2024-05-09 18:20 | FL ---
EXAMINATION TYPE: FL guided pain mgmt statistic DATE OF EXAM: 04/11/2024 11:37 AM COMPARISON: Pre Operative Images if available both CT/MRI or plain film CLINICAL INDICATION: Female, 73 years old with history of CAUDAL WITH LYSIS; TECHNIQUE: FL guided pain mgmt statistic, multiple fluoroscopic images provided for procedure. Total fluoroscopy time: 7 seconds Total submitted images to PACS: 3 DAP: [id number] mGym2 Gycm2 uGym2 cGycm2 or equivalent. FINDINGS: Fluoroscopic images during injection for pain management demonstrate multilevel degeneration changes throughout the spine. No evidence for fracture. No acute process identified. IMPRESSION: 1. No evidence for intraoperative complication. 2. Please see the operative/procedural note for further details. [facility], , 05/09/2024 6:17 PM
== END 2024-03-31 11:20 ==
LOC: ORPAIN 08:00
PROVIDERS: ATTEND Specialist
DX: M96.1 Postlaminectomy syndrome, not elsewhere classified (principal); Z88.8 Allergy status to other drugs, medicaments and biological substances; Z79.82 Long term (current) use of aspirin
CPT/HCPCS: 62264

== ENCOUNTER → 2024-12-11 | Outpatient (CLI) | payer MEDICARE ==
[2024-12-11 10:31] VITALS: BP 107/67; PULSE 71; RESP 16; TEMP 97.3
--- NOTE | 2024-12-11 16:36 | P.PAINPG ---
Objective - Vital Signs Vital signs: Intake & Output 12/10/24 12/11/24 12/11/24 18:59 06:59 18:59 Weight 90.718 kg PQRS Measure Charge Sheet Comment: HISTORY OF PRESENT ILLNESS: A 74 yr old female w at side presents today w severe and chronic LBP since 2014 secondary to L4-L5 post laminectomy syndrome for evaluation s/p Caudal MAI w Lysis #1. Pt states she experienced 50 % pain relief x 4 mo s/p procedure. Pt states pain level is provoked at 3-9 /10 in intensity, constant, localized in the lumbar spine, predominantly axial, sharp in character w occasional shooting pain towards the buttocks and hips. Pain is provoked by standing/ laying supine for periods > 15 min. Pain is alleviated by PT x 5 wks which ended in Sep 2023, physician guided home stretches daily since Sep 2023, medications, manual massage, repositioning and rest. Interventional procedures include BL TFESI L4-L5 x1, Caudal MAI w Lysis x1 (04/01) Medications include Neurontin, Mobic REVIEW OF ORGAN SYSTEMS: CONSTITUTIONAL: No fevers or chills. No recent weight loss. NEUROLOGICAL: + numbness and tingling along the distal extremities. No seizure disorders or headaches. MUSCULOSKELETAL: + pain PSYCHIATRIC: Denies current depression or suicidal thoughts. Physical Examinations : Constitutional : Cooperative , not in acute distress . Neurologic : Cranial nerve II to XII intact. No focal neurological deficits. Psychiatric : alert & oriented x 3. Matching mood & appropriate affect. Judgment & insight intact. Musculoskeletal : Cervical Spine Motor strength in the deltoid and biceps: Normal right side. Normal Left side Motor strength biceps and the wrist extensors: Normal right side . Normal left side Motor strength in the triceps muscle: Normal right side. Normal left side Deep tendon reflexes: Normal at the biceps. Normal at Brachioradialis. Normal at triceps Vertebral body tenderness to deep palpation over Cervical facet loading test: positive bilaterally Spurling test: positive bilaterally Neck distraction test: positive bilaterally Reinaldo sign: positive bilaterally Lumbar spine +Vertical incisional scar intact Motor strength lower extremities ,thigh and legs 5/5 Right side , 5/5 Left side Deep tendon reflexes : Normal Knee Jerk. Normal Ankle Jerk Vertebral body tenderness over L5 Callahan Test positive over L5- S1 BL Lumbar facet Loading Test: positive Right / positive Left Range of motion of the lumbar spine Flexion 30 degrees, extension 10 degrees Straight Leg Raise test: Left/ Right positive at degree Corbin test: positive right / positive left. Severe tenderness over the Sacroiliac joint on the Right / Left sides Gaenslen test: positive bilaterally Seated flexion test: positive bilaterally. Sacral spine : Severe tenderness over the Sacroiliac joint: right side / left side Range of motion: Flexion of the lumbar spine <60 degrees Range of motion: Extension of the lumbar spine <20 degrees Gaenslen's Test positive Corbin test: positive right side / left side Thigh Thrust Test Sacral Thrust Test Imaging: CT noncontrast of the lumbar spine from 10/23/2021 reviewed MRI noncontrast of the lumbar spine from 12/10/23 reviewed Assessment/ Plan : L4L5 anterolisthesis, L4-5 post lumbar laminectomy syndrome Recommendation of BL L5-S1 #1. Risks, benefits of procedure discussed and pt verbalized understanding. Protocol for discontinuation/ continuation of medications delano procedure discussed. All questions answered. I have spent greater than 30 minutes on patient care today. Dr Jama was available by phone for the evaluation of this patient. The time was used to review the medical records including relevant urine studies and Prescription history (MAPs), review of the available imaging, evaluation and examination of the patient, coordination of care with the medical staff and if applicable referring physicians, as well as creation of the medical record - Pain Location Bilateral Lower Back Non-Pharmacological Interventions: Exercise, Heat, Home Exercise, Inactivity, Physical Therapy, Position/Reposition, Relaxation Technique, Sitting, Stretching Pharmacological Interventions: Epidural, PRN Medication, Scheduled Medication, Topical Medication PQRS Narrative: Smoking Status Never smoker Hx Alcohol Use (MH) No Home Medications: Ambulatory Orders Cholecalciferol [Vitamin D3 (25 Mcg = 1000 Iu)] 2,000 unit PO QAM 05/17/18 Fenofibrate 160 mg PO QAM 05/17/18 Fingolimod HCl [Gilenya] 0.5 mg PO QAM 05/17/18 Losartan [Cozaar] 100 mg PO QAM 05/17/18 Mirabegron [Myrbetriq] 25 mg PO QAM 05/17/18 Vit C/E/Zn/Coppr/Lutein/Zeaxan [Preservision Areds 2 Softgel] 1 each PO BID 05/17/18 Ibandronate Sodium [Boniva] 150 mg PO Q30D 03/30/23 Meclizine [Antivert] 12.5 mg PO DIRECTED PRN 03/30/23 Pantoprazole Sodium [Protonix] 20 mg PO QAM 03/30/23 Aspirin 81 mg PO QAM 03/31/23 Cranberry Fruit Extract [Cranberry] 500 mg PO BID 03/31/23 Potassium Chloride ER [K-Dur 20] 20 meq PO QAM 10/29/23 NIFEdipine [NIFEdipine ER (Osmotic)] 60 mg PO HS 03/01/24 Pregabalin 50 mg PO TID 12/11/24 diazePAM [Valium] 5 mg PO DAILY 1 Days #2 tab 12/11/24 Controlled Substance Measures - Controlled Substance Measures Is patient prescribed a controlled substance at discharge?: Yes When asked, does pt state using other controlled substances?: No If prescribed controlled substance>3 days was MAPS reviewed?: Prescribed <3 Days
== END | disposition home or self-care (01) ==
LOC: PNWHC3 10:10
PROVIDERS: ATTEND Specialist
DX: M43.16 Spondylolisthesis, lumbar region (principal); M96.1 Postlaminectomy syndrome, not elsewhere classified; Z88.2 Allergy status to sulfonamides; Z88.3 Allergy status to other anti-infective agents; Z88.8 Allergy status to other drugs, medicaments and biological substances
CPT/HCPCS: 99211